=== PATIENT | female | born 1950 | race Caucasian/White ===

== ENCOUNTER 2016-10-19 13:52 | Inpatient (IN) | payer OTHER ==
[~2016-10-19] VITALS: Ht 170.2 cm; Wt 136.7 kg
[~2016-10-19 13:52] MED LIST: BAYER ASPIRIN C81 MG PO; CLARITIN10 MG PO; COZAAR100 MG PO; Carafate1 GM/10 ML PO; DIFLUCAN150 MG PO; EC NAPROSYN500 MG PO; ESTRADIOL0.05 MG/24 TD; FEXOFENADINE180 MG PO; FLONASE0.05 MG/AC NS; FLUTICASON0.05 MG/AC NS; HUMALOG MIX75/253 M1 SC; KEFLEX500 MG PO; LASIX40 MG PO; LIDEX 0.05% GEL60 GM PO; LORATADINE10 MG PO; LOSARTAN POTASS50 M1 PO; MEDROL DOSEPAK4 MG PO; MIRALAX POWDER17 G1 PO; NAPROXEN500 M1 PO; NEXIUM40 MG PO; NOVOLIN N100 U/ML SC; OYSTER SHELL CA1 TA4 PO; PROTONIX40 MG PO; VITAMIN D1000 IU PO; Zofran4 MG PO
[2016-10-19 14:14] VITALS: BP 126/60
[2016-10-19 15:13] LABS: BASO % 0.2 % (0.0-1.0); EOS # 0.3 10*3/uL (0.0-0.4); EOS % 3.5 % (1.0-4.0); HEMATOCRIT 44.2 % (37.0-47.0); HEMOGLOBIN 13.8 g/dl (12.0-16.0); LYMPH # 1.8 10*3/uL (1.3-4.4); LYMPH % 19.9 % (27.0-41.0); MEAN CELL VOLUME 91.5 fl (81.0-99.0); MEAN CORPUSCULAR HGB 28.6 pg (27.0-31.0); MEAN CORPUSCULAR HGB CONC 31.2 g/dl (33.0-37.0); MEAN PLATELET VOLUME 9.9 fl (9.6-12.3); MONO # 0.5 10*3/uL (0.1-1.0); MONO % 5.3 % (3.0-9.0); NEUT # 6.5 10*3/uL (2.3-7.9); NEUT % 70.8 % (47.0-73.0); PLATELET COUNT AUTOMATED 250 10*3/uL (130-400); RED BLOOD COUNT 4.83 10*6/uL (4.10-5.10); RED CELL DISTRI WIDTH 14.9 % (0-14.5); WHITE BLOOD COUNT 9.2 10*3/uL (4.8-10.8)
[2016-10-19 15:30] LABS: ALBUMIN 3.2 gm/dl (3.1-4.5); ALKALINE PHOSPHATASE 59 U/L (45-117); BILIRUBIN, TOTAL 0.3 mg/dl (0.2-1.0); BUN 14 mg/dl (7-24); CARBON DIOXIDE 30 mmol/L (21-32); CHLORIDE 105 mmol/L (98-107); EST GLOM FILT AFRICAN AMERICAN > 60 ml/min; GLUCOSE 59 mg/dL (65-99); POTASSIUM 3.3 mmol/L (3.5-5.1); SGOT/AST 24 IU/L (3-35); SGPT/ALT 21 U/L (12-78); SODIUM 143 mmol/L (136-145); TOTAL PROTEIN 7.3 gm/dL (6.4-8.2)
[2016-10-19 17:15] VITALS: BP 134/80
[2016-10-19 18:30] VITALS: BP 142/60
[2016-10-19] MEDS ORDERED: ZOCOR20 MG PO (18:37)
[2016-10-19 20:00] VITALS: BP 149/65
[2016-10-20] VITALS: BP 126/47
[2016-10-20 06:37] LABS: BASO % 0.5 % (0.0-1.0); EOS # 0.3 10*3/uL (0.0-0.4); EOS % 5.1 % (1.0-4.0); HEMATOCRIT 38.2 % (37.0-47.0); LYMPH # 2.3 10*3/uL (1.3-4.4); MEAN CELL VOLUME 92.7 fl (81.0-99.0); MEAN CORPUSCULAR HGB 29.1 pg (27.0-31.0); MEAN CORPUSCULAR HGB CONC 31.4 g/dl (33.0-37.0); MEAN PLATELET VOLUME 9.7 fl (9.6-12.3); MONO # 0.5 10*3/uL (0.1-1.0); MONO % 7.6 % (3.0-9.0); NEUT # 3.1 10*3/uL (2.3-7.9); NEUT % 49.5 % (47.0-73.0); PLATELET COUNT AUTOMATED 224 10*3/uL (130-400); RED BLOOD COUNT 4.12 10*6/uL (4.10-5.10); RED CELL DISTRI WIDTH 15.2 % (0-14.5); WHITE BLOOD COUNT 6.3 10*3/uL (4.8-10.8)
[2016-10-20 07:12] LABS: HEMOGLOBIN A1c 7.9 % (4.8-5.6)
[2016-10-20 07:14] LABS: CHLORIDE 105 mmol/L (98-107); POTASSIUM 4.1 mmol/L (3.5-5.1); SODIUM 145 mmol/L (136-145)
[2016-10-20 07:33] LABS: BUN 12 mg/dl (7-24); CARBON DIOXIDE 30 mmol/L (21-32); EST GLOM FILT AFRICAN AMERICAN > 60 ml/min; FREE T4 0.87 ng/dl (0.76-1.46); GLUCOSE 193 mg/dL (65-99); MAGNESIUM 2.4 mg/dL (1.5-2.1); PHOSPHOROUS 4.2 mg/dL (2.5-4.9)
[2016-10-20 08:00] VITALS: BP 155/76
[2016-10-20 12:00] VITALS: BP 168/72
== END 2016-10-20 14:39 | disposition home or self-care (01) | DRG 638 ==
LOC: ED 13:52 → EDHOLD 15:48 → 5E 15:48
PROVIDERS: Registered Nurse; Student in an Organized Health Care Education/Training Program
DX: E11.649 Type 2 diabetes mellitus with hypoglycemia without coma (principal); E44.1 Mild protein-calorie malnutrition; K27.9 Peptic ulcer, site unspecified, unspecified as acute or chronic, without hemorrhage or perforation; Z68.42 Body mass index [BMI] 45.0-49.9, adult; R55 Syncope and collapse; E87.6 Hypokalemia; K21.9 Gastro-esophageal reflux disease without esophagitis; E78.5 Hyperlipidemia, unspecified; I10 Essential (primary) hypertension; I25.10 Atherosclerotic heart disease of native coronary artery without angina pectoris; Z79.4 Long term (current) use of insulin; Z95.1 Presence of aortocoronary bypass graft; Z90.710 Acquired absence of both cervix and uterus; Z98.49 Cataract extraction status, unspecified eye; Z87.891 Personal history of nicotine dependence; Z88.1 Allergy status to other antibiotic agents; Z88.0 Allergy status to penicillin; Z82.49 Family history of ischemic heart disease and other diseases of the circulatory system; Z79.82 Long term (current) use of aspirin; Z79.899 Other long term (current) drug therapy

== ENCOUNTER 2016-10-31 13:46 | Inpatient (IN) | payer OTHER ==
[~2016-10-31] VITALS: Ht 170.1 cm; Wt 138.8 kg
[2016-10-31 13:46] VITALS: BP 147/58
[~2016-10-31 13:46] MED LIST changes: +ZOCOR20 MG PO
[2016-10-31] MEDS ORDERED: IRON325 M2 PO (14:14)
[2016-10-31] MEDS ORDERED: PLAVIX75 M1 PO (14:15)
[2016-10-31] MEDS ORDERED: OYSTER SHELL C1 EAC3 PO (14:15)
[2016-10-31] MEDS ORDERED: PROTONIX TR40 M1 PO (14:15)
[2016-10-31] MEDS ORDERED: LASIX40 MG PO (14:16)
[2016-10-31] MEDS ORDERED: HUMALOG 751 UNIT/0.0 SC (14:16)
[2016-10-31] MEDS ORDERED: CARVEDILOL25 MG PO (14:16)
[2016-10-31] MEDS ORDERED: COZAAR100 MG PO (14:17)
[2016-10-31] MEDS ORDERED: SIMVASTATIN20 MG PO (14:17)
[2016-10-31 14:47] LABS: BILIRUBIN NEGATIVE (NEGATIVE); BLOOD 1+ (NEGATIVE); CLARITY SL CLOUDY (CLEAR); COLOR YELLOW (YELLOW); GLUCOSE NEGATIVE (NEGATIVE); KETONE NEGATIVE (NEGATIVE); LEUKO ESTERASE NEGATIVE (NEGATIVE); NITRITE POSITIVE (NEGATIVE); PROTEIN NEGATIVE (NEGATIVE); UROBILINOGEN 0.2 E.U./dl (0.2-1.0)
[2016-10-31 14:51] LABS: BASO % 0.2 % (0.0-1.0); EOS # 0.3 10*3/uL (0.0-0.4); EOS % 2.9 % (1.0-4.0); HEMATOCRIT 43.1 % (37.0-47.0); HEMOGLOBIN 13.5 g/dl (12.0-16.0); LYMPH # 1.7 10*3/uL (1.3-4.4); LYMPH % 19.6 % (27.0-41.0); MEAN CELL VOLUME 92.1 fl (81.0-99.0); MEAN CORPUSCULAR HGB 28.8 pg (27.0-31.0); MEAN CORPUSCULAR HGB CONC 31.3 g/dl (33.0-37.0); MEAN PLATELET VOLUME 9.9 fl (9.6-12.3); MONO # 0.5 10*3/uL (0.1-1.0); MONO % 5.3 % (3.0-9.0); NEUT # 6.3 10*3/uL (2.3-7.9); NEUT % 71.8 % (47.0-73.0); PLATELET COUNT AUTOMATED 237 10*3/uL (130-400); RED BLOOD COUNT 4.68 10*6/uL (4.10-5.10); RED CELL DISTRI WIDTH 15.2 % (0-14.5); WHITE BLOOD COUNT 8.7 10*3/uL (4.8-10.8)
[2016-10-31 14:56] LABS: BACTERIA 2+
[2016-10-31 15:09] LABS: ALBUMIN 3.2 gm/dl (3.1-4.5); ALKALINE PHOSPHATASE 57 U/L (45-117); BILIRUBIN, TOTAL 0.4 mg/dl (0.2-1.0); BUN 9 mg/dl (7-24); CARBON DIOXIDE 29 mmol/L (21-32); CHLORIDE 104 mmol/L (98-107); EST GLOM FILT AFRICAN AMERICAN > 60 ml/min; GLUCOSE 164 mg/dL (65-99); POTASSIUM 3.8 mmol/L (3.5-5.1); SGOT/AST 19 IU/L (3-35); SGPT/ALT 20 U/L (12-78); SODIUM 145 mmol/L (136-145)
[2016-10-31 15:31] LABS: TROPONIN I < 0.015 ng/ml (<0.045)
[2016-10-31 16:11] VITALS: BP 146/60
[2016-10-31 16:30] VITALS: BP 160/62
[2016-10-31 16:42] VITALS: BP 160/66
[2016-10-31 20:00] VITALS: BP 110/71
[2016-11-01] VITALS: BP 124/48
[2016-11-01 06:31] LABS: BASO % 0.3 % (0.0-1.0); EOS # 0.4 10*3/uL (0.0-0.4); EOS % 5.4 % (1.0-4.0); HEMATOCRIT 37.8 % (37.0-47.0); HEMOGLOBIN 11.5 g/dl (12.0-16.0); LYMPH # 2.2 10*3/uL (1.3-4.4); LYMPH % 34.8 % (27.0-41.0); MEAN CELL VOLUME 93.6 fl (81.0-99.0); MEAN CORPUSCULAR HGB 28.5 pg (27.0-31.0); MEAN CORPUSCULAR HGB CONC 30.4 g/dl (33.0-37.0); MEAN PLATELET VOLUME 10.2 fl (9.6-12.3); MONO # 0.6 10*3/uL (0.1-1.0); MONO % 8.6 % (3.0-9.0); NEUT # 3.3 10*3/uL (2.3-7.9); NEUT % 50.7 % (47.0-73.0); PLATELET COUNT AUTOMATED 210 10*3/uL (130-400); RED BLOOD COUNT 4.04 10*6/uL (4.10-5.10); RED CELL DISTRI WIDTH 15.3 % (0-14.5); WHITE BLOOD COUNT 6.4 10*3/uL (4.8-10.8)
[2016-11-01 06:50] LABS: POTASSIUM 4.2 mmol/L (3.5-5.1)
[2016-11-01 08:00] VITALS: BP 121/43
[2016-11-01 10:05] VITALS: BP 134/64
[2016-11-01 12:00] VITALS: BP 153/70
[2016-11-01 16:00] VITALS: BP 122/40
[2016-11-01 20:00] VITALS: BP 158/78
[2016-11-02] VITALS: BP 122/49
[2016-11-02 06:21] LABS: BASO % 0.4 % (0.0-1.0); EOS # 0.3 10*3/uL (0.0-0.4); HEMATOCRIT 37.7 % (37.0-47.0); HEMOGLOBIN 11.9 g/dl (12.0-16.0); LYMPH # 1.8 10*3/uL (1.3-4.4); LYMPH % 31.5 % (27.0-41.0); MEAN CELL VOLUME 92.9 fl (81.0-99.0); MEAN CORPUSCULAR HGB 29.3 pg (27.0-31.0); MEAN CORPUSCULAR HGB CONC 31.6 g/dl (33.0-37.0); MEAN PLATELET VOLUME 10.1 fl (9.6-12.3); MONO # 0.4 10*3/uL (0.1-1.0); MONO % 7.7 % (3.0-9.0); NEUT # 3.1 10*3/uL (2.3-7.9); NEUT % 55.2 % (47.0-73.0); PLATELET COUNT AUTOMATED 202 10*3/uL (130-400); RED BLOOD COUNT 4.06 10*6/uL (4.10-5.10); RED CELL DISTRI WIDTH 14.9 % (0-14.5); WHITE BLOOD COUNT 5.6 10*3/uL (4.8-10.8)
[2016-11-02 06:55] LABS: BUN 15 mg/dl (7-24); CARBON DIOXIDE 30 mmol/L (21-32); CHLORIDE 103 mmol/L (98-107); EST GLOM FILT AFRICAN AMERICAN > 60 ml/min; GLUCOSE 294 mg/dL (65-99); POTASSIUM 3.9 mmol/L (3.5-5.1); SODIUM 143 mmol/L (136-145)
[2016-11-02 08:00] VITALS: BP 125/60
== END 2016-11-02 14:18 | disposition home or self-care (01) | DRG 312 ==
LOC: ED 13:46 → 4E 16:07 → EDHOLD 16:07 → 4E 16:12
PROVIDERS: Emergency Medicine; Family Medicine; Internal Medicine
DX: R55 Syncope and collapse (principal); I11.0 Hypertensive heart disease with heart failure; I50.42 Chronic combined systolic (congestive) and diastolic (congestive) heart failure; I25.810 Atherosclerosis of coronary artery bypass graft(s) without angina pectoris; Z95.1 Presence of aortocoronary bypass graft; K21.9 Gastro-esophageal reflux disease without esophagitis; E78.5 Hyperlipidemia, unspecified; I25.5 Ischemic cardiomyopathy; Z79.4 Long term (current) use of insulin; Z88.0 Allergy status to penicillin; Z88.1 Allergy status to other antibiotic agents; Z98.49 Cataract extraction status, unspecified eye; Z90.710 Acquired absence of both cervix and uterus; Z87.891 Personal history of nicotine dependence; Z82.5 Family history of asthma and other chronic lower respiratory diseases; Z82.49 Family history of ischemic heart disease and other diseases of the circulatory system; Z79.899 Other long term (current) drug therapy

== ENCOUNTER → 2016-12-31 | Outpatient (CLI) | payer OTHER ==
[~2016-12-31] MED LIST changes: +CARVEDILOL25 MG PO; +HUMALOG 751 UNIT/0.0 SC; +IRON325 M2 PO; +OYSTER SHELL C1 EAC3 PO; +PLAVIX75 M1 PO; +PROTONIX TR40 M1 PO; +SIMVASTATIN20 MG PO
== END | disposition home or self-care (01) ==
LOC: LAB 14:57 → US 15:00
DX: N18.3 Chronic kidney disease, stage 3 (moderate) (principal)

== ENCOUNTER → 2017-05-17 | Outpatient (CLI) | payer OTHER ==
[2017-05-17 12:20] LABS: CREATININE 1.18 mg/dL (0.55-1.02); POTASSIUM 3.9 mmol/L (3.5-5.1)
== END ==
LOC: LAB 11:26
PROVIDERS: Internal Medicine
DX: E87.0 Hyperosmolality and hypernatremia (principal)

== ENCOUNTER → 2017-09-09 | Outpatient (CLI) | payer OTHER | END | disposition home or self-care (01) | LOC: LAB 09:08 | DX: E11.9 Type 2 diabetes mellitus without complications (principal) ==

== ENCOUNTER → 2017-12-21 | Outpatient (CLI) | payer OTHER | END | disposition home or self-care (01) | LOC: CARD 09:27 | DX: R60.0 Localized edema (principal) ==

== ENCOUNTER → 2018-02-09 | Outpatient (CLI) | payer OTHER | END | disposition home or self-care (01) | LOC: MAMMO 08:37 | DX: Z12.31 Encounter for screening mammogram for malignant neoplasm of breast (principal) ==

== ENCOUNTER → 2018-05-18 | Outpatient (CLI) | payer OTHER ==
[~2018-05-18] MED LIST changes: +AMLODIPINE BESYL5 MG PO; +ASPIR LOW81 MG PO; +CIPRO500 MG PO; +DIOVAN40 MG PO; +FEOSOL325 MG PO; +HYDROCHLOROTHIA25 M1 PO; +LEVOTHYROXINE75 MCG PO; +MAGNESIUM OXID400 MG PO; +Magnesium Oxid400 MG PO; +TIMOLOL MALEATE5 M1 OPH; +TRAMADOL HCL50 MG PO
== END | disposition home or self-care (01) ==
LOC: RAD 13:35
DX: M25.552 Pain in left hip (principal); M53.3 Sacrococcygeal disorders, not elsewhere classified; M54.5 Low back pain

== ENCOUNTER 2018-05-29 04:55 | Inpatient (IN) | payer OTHER ==
[2018-05-29] VITALS (7 sets, daily range): BP systolic 139–187; BP diastolic 58–89
[~2018-05-29] VITALS: Ht 170.2 cm; Wt 123.5 kg
--- NOTE | ~2018-05-29 | EKG ---
[place], [place] ELECTROCARDIOGRAM REPORT NAME: CROW VICENTE UNIT #: [id number] ROOM: [facility] DOCTOR: SILVIA DRAFT REPORT BIRTHDATE: [birth year] [facility] Test Date: 2018-05-29 Test Time: 05:29:58 Pat Name: CROW VICENTE Department: Room: [facility] Gender: F Exercise Physiologist Certified: : 1950 Requested By: CROW BLOUNT Order Number: [id number] Reading MD: Elizabet Dumas MD Measurements Intervals [place] Rate: 112 P: 69 [place]: 166 QRS: 44 QRSD: 108 T: QT: 357 QTc: 488 Interpretive Statements Sinus tachycardia Nonspecific repol abnormality, diffuse leads Borderline prolonged QT interval No previous ECG available for comparison Electronically Signed On 05-29-2018 12:45:52 PST by Elizabet Dumas MD CM:EKGRPT:ELECTROCARDIOGRAM REPORT [id number] CROW BARRIGA DRAFT REPORT CROW BLOUNT DO
[~2018-05-29 04:55] MED LIST changes: -AMLODIPINE BESYL5 MG PO; -ASPIR LOW81 MG PO; -CIPRO500 MG PO; -DIOVAN40 MG PO; -FEOSOL325 MG PO; -HYDROCHLOROTHIA25 M1 PO; -LEVOTHYROXINE75 MCG PO; -MAGNESIUM OXID400 MG PO; -Magnesium Oxid400 MG PO; -TIMOLOL MALEATE5 M1 OPH; -TRAMADOL HCL50 MG PO
[2018-05-29] MEDS ORDERED: DIOVAN40 MG PO (05:00)
[2018-05-29 05:59] LABS: CREATININE 1.33 mg/dL (0.55-1.02); POTASSIUM 4.2 mmol/L (3.5-5.1); TOTAL PROTEIN 7.9 gm/dL (6.4-8.2)
[2018-05-29 06:00] LABS: TROPONIN I 0.015 ng/ml (<0.045)
[2018-05-29 06:07] LABS: BILIRUBIN NEGATIVE (NEGATIVE); BLOOD 2+ (NEGATIVE); CLARITY CLOUDY (CLEAR); COLOR YELLOW (YELLOW); GLUCOSE 2+ (NEGATIVE); KETONE 3+ (NEGATIVE); LEUKO ESTERASE NEGATIVE (NEGATIVE); NITRITE POSITIVE (NEGATIVE); PH 5.5 (5.0-9.0); SPECIFIC GRAVITY 1.015 (1.005-1.030); UROBILINOGEN 0.2 E.U./dl (0.2-1.0)
[2018-05-29 06:32] LABS: BACTERIA 2+; EPITHELIAL CELLS 15-20; YEAST 4+
[2018-05-29 07:33] LABS: BASO % 0.2 % (0.0-1.0); HEMATOCRIT 45.6 % (37.0-47.0); HEMOGLOBIN 14.5 g/dl (12.0-16.0); LYMPH # 1.2 10*3/uL (1.3-4.4); LYMPH % 9.9 % (27.0-41.0); MEAN CELL VOLUME 93.6 fl (81.0-99.0); MEAN CORPUSCULAR HGB 29.8 pg (27.0-31.0); MEAN CORPUSCULAR HGB CONC 31.8 g/dl (33.0-37.0); MEAN PLATELET VOLUME 11.2 fl (9.6-12.3); MONO # 0.2 10*3/uL (0.1-1.0); MONO % 1.8 % (3.0-9.0); NEUT # 10.6 10*3/uL (2.3-7.9); NEUT % 87.8 % (47.0-73.0); PLATELET COUNT AUTOMATED 289 10*3/uL (130-400); RED BLOOD COUNT 4.87 10*6/uL (4.10-5.10); RED CELL DISTRI WIDTH 13.1 % (0-14.5); WHITE BLOOD COUNT 12.1 10*3/uL (4.8-10.8)
[2018-05-29] MEDS ORDERED: TIMOLOL MALEATE5 M1 OPH (08:47)
[2018-05-29] MEDS ORDERED: TRAMADOL HCL50 MG PO (08:49)
[2018-05-29] MEDS ORDERED: ASPIR LOW81 MG PO (08:58)
[2018-05-29] MEDS ORDERED: LEVOTHYROXINE75 MCG PO (08:58)
[2018-05-29] MEDS ORDERED: HYDROCHLOROTHIA25 M1 PO (08:59)
[2018-05-29] MEDS ORDERED: AMLODIPINE BESYL5 MG PO (09:00)
[2018-05-29 09:27] LABS: CREATININE 1.47 mg/dL (0.55-1.02)
[2018-05-29 12:55] LABS: CREATININE 1.4 mg/dL (0.55-1.02); POTASSIUM 3.9 mmol/L (3.5-5.1)
[2018-05-29 14:59] LABS: URINE CREATININE RANDOM 46.3 mg/dL
[2018-05-29 17:02] LABS: CREATININE 1.2 mg/dL (0.55-1.02); POTASSIUM 3.9 mmol/L (3.5-5.1)
[2018-05-29 20:04] LABS: CREATININE 1.21 mg/dL (0.55-1.02)
[2018-05-29 20:07] LABS: POTASSIUM 3.4 mmol/L (3.5-5.1)
[2018-05-30] VITALS: BP 186/88
[2018-05-30 00:43] LABS: BUN 16 mg/dl (7-24); CHLORIDE 104 mmol/L (98-107); CREATININE 0.98 mg/dL (0.55-1.02); POTASSIUM 3.6 mmol/L (3.5-5.1); SODIUM 142 mmol/L (136-145)
[2018-05-30 04:00] VITALS: BP 176/65
[2018-05-30 05:35] LABS: ALBUMIN 2.7 gm/dl (3.1-4.5); ALKALINE PHOSPHATASE 56 U/L (45-117); BUN 13 mg/dl (7-24); CHLORIDE 106 mmol/L (98-107); CHOLESTEROL 141 mg/dL (<200); FREE T4 1.23 ng/dl (0.76-1.46); PHOSPHOROUS 1.4 mg/dL (2.5-4.9); POTASSIUM 3.4 mmol/L (3.5-5.1); SGOT/AST 19 IU/L (3-35); SGPT/ALT 18 U/L (12-78); SODIUM 141 mmol/L (136-145); TOTAL PROTEIN 6.8 gm/dL (6.4-8.2); TRIGLYCERIDES 129 mg/dl (<150); VLDL CHOLESTEROL 26 mg/dL (6-40)
[2018-05-30 05:39] LABS: HDL CHOLESTEROL 57 mg/dl (40-60); LDL CHOLESTEROL 58 mg/dL (9-159)
[2018-05-30 06:23] LABS: BASO % 0.1 % (0.0-1.0); HEMATOCRIT 40.9 % (37.0-47.0); HEMOGLOBIN 12.6 g/dl (12.0-16.0); LYMPH # 1.7 10*3/uL (1.3-4.4); LYMPH % 11.2 % (27.0-41.0); MEAN CELL VOLUME 95.8 fl (81.0-99.0); MEAN CORPUSCULAR HGB 29.5 pg (27.0-31.0); MEAN CORPUSCULAR HGB CONC 30.8 g/dl (33.0-37.0); MEAN PLATELET VOLUME 10.9 fl (9.6-12.3); MONO # 0.7 10*3/uL (0.1-1.0); MONO % 4.7 % (3.0-9.0); NEUT # 12.5 10*3/uL (2.3-7.9); NEUT % 83.5 % (47.0-73.0); PLATELET COUNT AUTOMATED 264 10*3/uL (130-400); RED BLOOD COUNT 4.27 10*6/uL (4.10-5.10); RED CELL DISTRI WIDTH 13.6 % (0-14.5)
[2018-05-30 07:01] LABS: ACT PARTIAL THROMBO TIME 20.9 SECONDS (20.8-31.5); INTERNATIONAL NORM RATIO 0.9 (2.0-3.5)
[2018-05-30 07:51] LABS: VITAMIN D, 25-HYDROXY 26.4 ng/mL (30-100)
[2018-05-30 08:00] VITALS: BP 170/72
[2018-05-30 12:00] VITALS: BP 157/73
[2018-05-30 12:40] LABS: BUN 11 mg/dl (7-24); CHLORIDE 106 mmol/L (98-107); CREATININE 0.86 mg/dL (0.55-1.02); PHOSPHOROUS 2.3 mg/dL (2.5-4.9); SODIUM 139 mmol/L (136-145)
[2018-05-30 12:46] LABS: POTASSIUM 4.4 mmol/L (3.5-5.1)
[2018-05-30 16:00] VITALS: BP 146/60
[2018-05-30 20:00] VITALS: BP 128/69
[2018-05-31] VITALS: BP 155/64
[2018-05-31 06:41] LABS: BASO % 0.2 % (0.0-1.0); EOS # 0.1 10*3/uL (0.0-0.4); EOS % 0.7 % (1.0-4.0); HEMATOCRIT 38.1 % (37.0-47.0); LYMPH # 2.4 10*3/uL (1.3-4.4); LYMPH % 24.4 % (27.0-41.0); MEAN CELL VOLUME 95.7 fl (81.0-99.0); MEAN CORPUSCULAR HGB 30.2 pg (27.0-31.0); MEAN CORPUSCULAR HGB CONC 31.5 g/dl (33.0-37.0); MEAN PLATELET VOLUME 10.5 fl (9.6-12.3); MONO # 0.6 10*3/uL (0.1-1.0); MONO % 5.8 % (3.0-9.0); NEUT # 6.7 10*3/uL (2.3-7.9); NEUT % 68.5 % (47.0-73.0); PLATELET COUNT AUTOMATED 259 10*3/uL (130-400); RED BLOOD COUNT 3.98 10*6/uL (4.10-5.10); RED CELL DISTRI WIDTH 13.7 % (0-14.5); WHITE BLOOD COUNT 9.7 10*3/uL (4.8-10.8)
[2018-05-31 06:43] LABS: BUN 10 mg/dl (7-24); CHLORIDE 103 mmol/L (98-107); CREATININE 0.99 mg/dL (0.55-1.02); PHOSPHOROUS 2.1 mg/dL (2.5-4.9); SODIUM 138 mmol/L (136-145)
[2018-05-31 12:00] VITALS: BP 108/84
[2018-05-31 16:00] VITALS: BP 144/60
[2018-05-31 20:00] VITALS: BP 134/61
[2018-06-01] VITALS: BP 138/63
[2018-06-01 06:39] LABS: BASO % 0.2 % (0.0-1.0); EOS # 0.2 10*3/uL (0.0-0.4); EOS % 2.5 % (1.0-4.0); HEMATOCRIT 36.6 % (37.0-47.0); LYMPH # 2.2 10*3/uL (1.3-4.4); LYMPH % 27.5 % (27.0-41.0); MEAN CELL VOLUME 93.1 fl (81.0-99.0); MEAN CORPUSCULAR HGB 30.5 pg (27.0-31.0); MEAN CORPUSCULAR HGB CONC 32.8 g/dl (33.0-37.0); MEAN PLATELET VOLUME 10.2 fl (9.6-12.3); MONO # 0.6 10*3/uL (0.1-1.0); MONO % 7.2 % (3.0-9.0); NEUT # 5.1 10*3/uL (2.3-7.9); NEUT % 62.4 % (47.0-73.0); PLATELET COUNT AUTOMATED 241 10*3/uL (130-400); RED BLOOD COUNT 3.93 10*6/uL (4.10-5.10); RED CELL DISTRI WIDTH 13.3 % (0-14.5); WHITE BLOOD COUNT 8.1 10*3/uL (4.8-10.8)
[2018-06-01 06:55] LABS: ALBUMIN 2.4 gm/dl (3.1-4.5); ALKALINE PHOSPHATASE 48 U/L (45-117); BUN 10 mg/dl (7-24); CHLORIDE 105 mmol/L (98-107); CREATININE 0.81 mg/dL (0.55-1.02); PHOSPHOROUS 2.8 mg/dL (2.5-4.9); SGOT/AST 19 IU/L (3-35); SGPT/ALT 19 U/L (12-78); SODIUM 138 mmol/L (136-145)
[2018-06-01 12:00] VITALS: BP 110/75
[2018-06-01 16:00] VITALS: BP 130/51
[2018-06-01] MEDS ORDERED: CIPRO500 MG PO (17:25)
== END 2018-06-01 18:43 | disposition home or self-care (01) | DRG 871 ==
LOC: ED 04:55 → ICCU 06:37 → EDHOLD 06:37 → 5E 06:37 → EDHOLD 07:19 → ICCU 07:35 → 5E 05-30 14:04
PROVIDERS: Emergency Medicine; Internal Medicine; Internal Medicine Nephrology; Student in an Organized Health Care Education/Training Program; ADMIT Internal Medicine
DX: A41.9 Sepsis, unspecified organism (principal); E13.10 Other specified diabetes mellitus with ketoacidosis without coma; N17.0 Acute kidney failure with tubular necrosis; E44.1 Mild protein-calorie malnutrition; N39.0 Urinary tract infection, site not specified; I50.42 Chronic combined systolic (congestive) and diastolic (congestive) heart failure; E87.3 Alkalosis; Z68.42 Body mass index [BMI] 45.0-49.9, adult; R65.20 Severe sepsis without septic shock; E78.5 Hyperlipidemia, unspecified; K21.9 Gastro-esophageal reflux disease without esophagitis; I11.0 Hypertensive heart disease with heart failure; K29.00 Acute gastritis without bleeding; I25.10 Atherosclerotic heart disease of native coronary artery without angina pectoris; E83.39 Other disorders of phosphorus metabolism; B96.1 Klebsiella pneumoniae [K. pneumoniae] as the cause of diseases classified elsewhere; Z79.4 Long term (current) use of insulin; Z87.11 Personal history of peptic ulcer disease; Z90.710 Acquired absence of both cervix and uterus; Z95.1 Presence of aortocoronary bypass graft; Z82.49 Family history of ischemic heart disease and other diseases of the circulatory system; Z83.6 Family history of other diseases of the respiratory system; Z88.0 Allergy status to penicillin; Z88.1 Allergy status to other antibiotic agents; Z79.82 Long term (current) use of aspirin; Z79.899 Other long term (current) drug therapy; Z98.41 Cataract extraction status, right eye; Z83.3 Family history of diabetes mellitus

== ENCOUNTER 2018-06-05 01:25 | Inpatient (IN) | payer OTHER ==
[~2018-06-05] VITALS: Ht 170.1 cm; Wt 127.1 kg
[2018-06-05] VITALS (51 sets, daily range): BP systolic 20–155; BP diastolic 0–60
--- NOTE | ~2018-06-05 | PR ---
[place], [place] PROGRESS NOTE [id number] UN[facility] #: [id number] ROOM: 404 DOCTOR: LAKIA HARLEY MD BIRTHDATE: [birth year] DOS: 06/11/2018 SUBJECTIVE: She feels well. She is sitting in a chair. She has had breakfast and no nausea, any abdominal pain. Has not had any chest pain or palpitations. When she had a run of monomorphic ventricular tachycardia, she did not have any symptoms. PHYSICAL EXAMINATION: GENERAL: This is a patient who is alert, oriented. She is very obese, comfortable, sitting in chair. She is not tachypneic. VITAL SIGNS: Pulse is 80 regular, blood pressure 119/53. NECK: Normal JVP. CARDIAC: Auscultation revealed no murmur or rub. She has 1 to 2+ edema in the feet. RESPIRATORY: Lungs are clear to auscultation. IMPRESSION: 1. This patient had a nonsustained monomorphic ventricular tachycardia couple of days ago and her potassium and magnesium levels were normal and she has not had any further episodes. Monitor continues to show normal sinus rhythm. 2. Acute renal failure has resolved and was due to volume depletion. 3. Hypovolemic shock, resolved with very aggressive IV hydration. 4. Diabetes mellitus. No new recommendations. LAKIA HARLEY MD CM:PNTRANS [id number] LAKIA HARLEY MD 06/11/18 2333 interface
--- NOTE | ~2018-06-05 | EKG ---
[place], [place] ELECTROCARDIOGRAM REPORT NAME: CROW VICENTE UNIT #: [id number] [facility]: [facility] DOCTOR: SILVIA DRAFT REPORT BIRTHDATE: [birth year] [facility] Test Date: 2018-06-05 Test Time: 01:49:05 Pat Name: CROW VICENTE Department: Room: [facility] Gender: F Stringer Machine Tender: Raghav Palmer : 1950 Requested By: JOHNNY DENIS Order Number: [id number] Reading MD: Lenard Padilla MD Measurements Intervals [place] Rate: 85 P: 36 WV: 144 QRS: 20 QRSD: 93 T: 30 QT: 492 QTc: 586 Interpretive Statements Sinus rhythm Borderline T abnormalities, anterior leads Prolonged QT interval Compared to ECG 05/29/2018 05:29:58 T-wave abnormality now present Sinus tachycardia no longer present Early repolarization no longer present Electronically Signed On 06-07-2018 14:07:04 PST by Lenard Padilla MD CM:EKGRPT:ELECTROCARDIOGRAM REPORT 0149 1407 JOHNNY BARRIGA DRAFT REPORT JOHNNY DENIS DO
--- NOTE | ~2018-06-05 | PR ---
[place], [place] PROGRESS NOTE NAME: CROW VICENTE UNIT #: [id number] ROOM: 404 DOCTOR: LAKIA HARLEY MD BIRTHDATE: [birth year] DOS: 06/09/2018 SUBJECTIVE: She feels well, sitting in a chair. She does not have any chest pain or breathing difficulty. Has not had any cough or fever. No palpitations. She has poor vision because of diabetic retinopathy. She had nonsustained V1-V2 monomorphic ventricular tachycardia. QT interval is normal. PHYSICAL EXAMINATION: GENERAL: The patient is very pleasant, alert. VITAL SIGNS: Pulse is regular. JVP is normal. Blood pressure 115/70. NECK: JVP normal. LUNGS: Clear to auscultation. EXTREMITIES: No edema in lower extremities. LABORATORY DATA: The patient's potassium and magnesium were fine. IMPRESSION: This patient with known coronary artery disease and had coronary artery bypass graft surgery about 2-3 years ago and had a nonsustained monomorphic ventricular tachycardia. She had normal LV systolic function with no obvious regional wall motion abnormality. I think this is probably a benign ventricular tachycardia; however, because of her background, it is probably prudent to perform a Lexiscan Cardiolite study on this patient. I discussed this with the resident. I thank you for this consult. LAKIA HARLEY MD CM:PNTRANS [id number] LAKIA HARLEY MD 06/16/18 0954 interface
--- NOTE | ~2018-06-05 | EKG ---
[place], [place] ELECTROCARDIOGRAM REPORT NAME: CROW VICENTE UNIT #: [id number] ROOM: [facility] DOCTOR: SILVIA DRAFT REPORT BIRTHDATE: [birth year] [facility] Test Date: 2018-06-05 Test Time: 10:06:01 Pat Name: CROW VICENTE Department: Room: [facility] Gender: F Crusher And Blender Operator: Erin Byrne : 1950 Requested By: JOHNNY DENIS Order Number: [id number] Reading MD: Lenard Padilla MD Measurements Intervals [place] Rate: 75 P: 48 NJ: 149 QRS: 26 QRSD: 109 T: QT: 386 QTc: 432 Interpretive Statements Sinus rhythm Ventricular premature complex Borderline low voltage, extremity leads Nonspecific T abnormalities, anterior leads Compared to ECG 05/29/2018 05:29:58 Ventricular premature complex(es) now present T-wave abnormality now present Sinus tachycardia no longer present Early repolarization no longer present Electronically Signed On 06-07-2018 14:08:01 PST by Lenard Padilla MD CM:EKGRPT:ELECTROCARDIOGRAM REPORT [id number] 1408 JOHNNY BARRIGA DRAFT REPORT JOHNNY DENIS DO
--- NOTE | ~2018-06-05 | PR ---
[place], [place] PROGRESS NOTE [id number] #: [id number] ROOM: 404 DOCTOR: ИВАН STEPHENS MD BIRTHDATE: [birth year] DOS: SUBJECTIVE: The patient has been admitted to the hospital with feeling of marked dizziness, falling down and sustaining some injury on her nose. She is today feeling very comfortably sitting in the chair, conscious, alert and oriented, not in any distress and she denies any headache, any chest pain, no difficulty breathing, no nausea, no vomiting. The patient had prolonged QT interval on her EKG, insulin-dependent diabetes mellitus, hypertension, hyperlipidemia, GERD syndrome, esophagitis, systolic and diastolic congestive heart failure, dyslipidemia, acute renal failure, hyperglycemia, protein-calorie malnutrition, autoimmune deficiency, obesity and leukocytosis. The patient is gradually improving. At admission, the patient has hypotension and now her blood pressure 107/50, pulse 74, respirations 18, temperature 97.5. Her comprehensive metabolic profile shows calcium 8.1, total protein 5.6, albumin 1.8, these are low. All other values are normal. CBC showed hypochromic anemia with hemoglobin 8.8, hematocrit 28.8, MCHC 30.6. Other values are normal. OBJECTIVE: CHEST: Clear. No creps or rhonchi. HEART: Regular, no murmur or thrill. ABDOMEN: Soft. EXTREMITIES: No edema of leg and she is progressively getting better. ИВАН STEPHENS MD CM:PNTRANS 1415 ИВАН STEPHENS MD 06/11/184 interface
--- NOTE | ~2018-06-05 | CON ---
[place], [place] REPORT OF CONSULTATION NAME: CROW VICENTE UNIT #: [id number] ROOM: [facility] DOCTOR: LAKIA HARLEY MD BIRTHDATE: [birth year] DOS: 06/06/2018 HISTORY OF PRESENT ILLNESS: This is a 68-year-old -[place] woman with extreme/morbid obesity, longstanding type 2 diabetes mellitus, who had a DKA, a week or so ago and was eventually discharged. She has coronary artery disease and 3-vessel CABG 2-3 years ago in [place]. She has hyperlipidemia, essential hypertension and has chronic kidney disease, GERD, also carries a diagnosis of systolic and diastolic heart failure, peptic ulcer disease, urinary tract infections. She has never had a stroke. She had tonsillectomy and adenoidectomy in the remote past and cataract extraction with lens implantation, hysterectomy. She had smoked in the remote past. She was admitted to the hospital because she had fallen and apparently did lose consciousness. It is not known how long she was out for. She lives alone. She apparently had been feeling weak and tired for about 3 days, just generalized malaise, but she did not have any localized pains, no chest pain or palpitations and had no headaches or any localizing neurological symptoms. The patient was found to be extremely hypotensive on admission and her blood sugar was around 500 and has remained high. She has been monitored in the intensive care unit and has received 6 liters of normal saline so far. She now is not short of breath. Her blood pressure remains low and autonomic dysfunction was considered as a possible reason for blood pressure creeping up. HOME MEDICATIONS: Included amlodipine 5, aspirin 81, carvedilol 25 mg daily, furosemide 40 mg daily, hydrochlorothiazide 25 mg daily, simvastatin 20 mg daily, timolol eye drops, tramadol, valsartan 40 daily, clopidogrel 75 mg daily, and ciprofloxacin 500 b.i.d. PHYSICAL EXAMINATION: GENERAL: This reveals a patient who is extremely obese. She is lying in bed. She is not tachypneic. She is not diaphoretic. Complexion looks fine. Thyromegaly is difficult to feel. There is no finger clubbing. VITAL SIGNS: Pulse is regular at 80 beats per minute. Systolic blood pressure about 90 mmHg. Central venous pressure was just checked through the double port and it needs a bit of a 3-6 cm of water. No bruit. HEART: There is no cardiomegaly, no murmurs. EXTREMITIES: She had 1-2+ edema in the pretibial areas. Pedal pulses were easily appreciated. RESPIRATORY: Breath sounds are fairly decent with very few adventitious sounds. LABORATORY DATA: ECG showed nothing acute. Chest x-ray was reviewed on the day of admission and also yesterday. It does not show any pulmonary congestion. Creatinine was 2.56, it is about 1.26 now. [place], [place] REPORT OF CONSULTATION NAME: CROW VICENTE UNIT #: [id number] ROOM: [facility] DOCTOR: CHERRI NICHOLS,LAKIA BIRTHDATE: [birth year] The patient has hypovolemic shock. I think this is most likely because she was on furosemide and hydrochlorothiazide, which was causing diureses on top of significant osmotic diuresis caused by severe hyperglycemia. RECOMMENDATIONS: Discontinue her diuretics altogether, which you have and continue with IV fluid because she still seems to be volume depleted and diabetes needs better control so osmotic diuresis can be averted. She had an echocardiogram yesterday, which showed an EF of 55% and diastolic dysfunction of impaired relaxation, but no valvular abnormalities. I discussed my impression and recommendations with the residents. I thank you for this consult. LAKIA HARLEY MD CM:CONSTR:REPORT OF CONSULTATION 1138 06/07/18 0718 interface
--- NOTE | ~2018-06-05 | EKG ---
[place], [place] ELECTROCARDIOGRAM REPORT NAME: CROW VICENTE UNIT #: [id number] ROOM: 404 DOCTOR: SILVIA DRAFT REPORT BIRTHDATE: [birth year] [facility] Test Date: 2018-06-08 Test Time: 16:51:39 Pat Name: CROW VICENTE Department: Room: 521 Gender: F Box Lining Machine Operator: : 1950 Requested By: SRAVANTHI AGEE Order Number: [id number] Reading MD: Billy Doan MD Measurements Intervals [place] Rate: 72 P: 66 [place]: 152 QRS: 53 QRSD: 101 T: 28 QT: 413 QTc: 453 Interpretive Statements Sinus rhythm Borderline T abnormalities, anterior leads Compared to ECG 06/05/2018 10:06:01 Ventricular premature complex(es) no longer present T-wave abnormality still present Electronically Signed On 06-20-2018 8:12:34 PST by Billy Doan MD CM:EKGRPT:ELECTROCARDIOGRAM REPORT 1651 0812 SRAVANTHI VEGA DRAFT REPORT SRAVANTHI AGEE
--- NOTE | ~2018-06-05 | PR ---
[place], [place] PROGRESS NOTE NAME: CROW VICENTE UNIT #: [id number] ROOM: 404 DOCTOR: LAKIA HARLEY MD BIRTHDATE: [birth year] DOS: 06/08/2018 SUBJECTIVE: The patient is sitting in the chair. She is comfortable. She is mildly short of breath, but does not have any chest pain or dizziness or palpitations. She ate reasonably well and did walk in the room. PHYSICAL EXAMINATION: GENERAL: The patient is very pleasant, alert, oriented. She is afebrile. VITAL SIGNS: Pulse is 72, blood pressure 141/57. NECK: JVP is normal. LUNGS: She has just a few adventitious sounds on the right side. Breath sounds are fairly decent. EXTREMITIES: Hardly any edema in the lower extremities. Acute renal failure, has completely resolved with a normal renal function. IMPRESSION: This patient had profound hypotension and tachycardia due to severe volume depletion resulting from loop diuretics, hydrochlorothiazide and osmotic diuresis because of severe hypoglycemia. She required enormous amount of IV fluids and now is euvolemic with good blood pressure and reasonable heart rate and normalized renal function. No new recommendations. LAKIA HARLEY MD CM:PNTRANS [id number] LAKIA HARLEY MD 06/09/18 0630 interface
[~2018-06-05 01:25] MED LIST changes: +AMLODIPINE BESYL5 MG PO; +ASPIR LOW81 MG PO; +CIPRO500 MG PO; +DIOVAN40 MG PO; +HYDROCHLOROTHIA25 M1 PO; +LEVOTHYROXINE75 MCG PO; +TIMOLOL MALEATE5 M1 OPH; +TRAMADOL HCL50 MG PO
[2018-06-05 01:47] LABS: BASO % 0.2 % (0.0-1.0); EOS # 0.1 10*3/uL (0.0-0.4); EOS % 0.4 % (1.0-4.0); HEMATOCRIT 38.5 % (37.0-47.0); HEMOGLOBIN 12.5 g/dl (12.0-16.0); LYMPH # 2.1 10*3/uL (1.3-4.4); LYMPH % 17.4 % (27.0-41.0); MEAN CELL VOLUME 94.6 fl (81.0-99.0); MEAN CORPUSCULAR HGB 30.7 pg (27.0-31.0); MEAN CORPUSCULAR HGB CONC 32.5 g/dl (33.0-37.0); MONO # 0.8 10*3/uL (0.1-1.0); MONO % 7.1 % (3.0-9.0); NEUT # 8.8 10*3/uL (2.3-7.9); NEUT % 74.6 % (47.0-73.0); PLATELET COUNT AUTOMATED 360 10*3/uL (130-400); RED BLOOD COUNT 4.07 10*6/uL (4.10-5.10); RED CELL DISTRI WIDTH 13.6 % (0-14.5); WHITE BLOOD COUNT 11.8 10*3/uL (4.8-10.8)
[2018-06-05 01:57] LABS: ACT PARTIAL THROMBO TIME 23.8 SECONDS (20.8-31.5); INTERNATIONAL NORM RATIO 0.9 (2.0-3.5)
[2018-06-05 02:04] LABS: ALBUMIN 2.7 gm/dl (3.1-4.5); ALKALINE PHOSPHATASE 59 U/L (45-117); BUN 16 mg/dl (7-24); CHLORIDE 94 mmol/L (98-107); CREATININE 2.56 mg/dL (0.55-1.02); POTASSIUM 3.7 mmol/L (3.5-5.1); SGOT/AST 24 IU/L (3-35); SGPT/ALT 23 U/L (12-78); SODIUM 137 mmol/L (136-145); TOTAL PROTEIN 7.2 gm/dL (6.4-8.2)
[2018-06-05 02:08] LABS: TROPONIN I < 0.015 ng/ml (<0.045)
[2018-06-05 02:43] LABS: BILIRUBIN NEGATIVE (NEGATIVE); BLOOD NEGATIVE (NEGATIVE); CLARITY SL CLOUDY (CLEAR); COLOR YELLOW (YELLOW); GLUCOSE NEGATIVE (NEGATIVE); KETONE TRACE (NEGATIVE); LEUKO ESTERASE TRACE (NEGATIVE); NITRITE NEGATIVE (NEGATIVE); UROBILINOGEN 0.2 E.U./dl (0.2-1.0)
--- NOTE | 2018-06-05 02:45 | NUR ---
Time: 244 A 68 year old FEMALE admitted to 4E under services of DR. TALISHA NICHOLS,SANJANA. Pt. arrived via stretcher from ER. Chief complaint: ARF, AMBULATORY DYSFUNCTION, PROLONGED QT INTERVAL. ARTHUR DUDLEY
[2018-06-05 02:50] LABS: EPITHELIAL CELLS 45-50; YEAST 2+
--- NOTE | 2018-06-05 03:30 | NUR ---
NOTIFIED DR WOODALL OF PT ADMISSION. NEW ORDERS RECEIVED. WILL VISIT PT IN AM.
[2018-06-05 05:09] LABS: ALBUMIN 2.6 gm/dl (3.1-4.5); CREATININE 2.44 mg/dL (0.55-1.02); POTASSIUM 3.7 mmol/L (3.5-5.1); TOTAL PROTEIN 6.5 gm/dL (6.4-8.2)
--- NOTE | 2018-06-05 06:15 | NUR ---
NOTIFIED DR ULLOA OF CONSULT. ORDERS RECEIVED. URINE LYTES, URINE CREATININE AND RENAL US.
--- NOTE | 2018-06-05 08:12 | NUR ---
PATIENT AWAKE IN BED, ATE 100% OF BREAKFAST. VOICES NO COMPLAINTS AT THIS TIME. CALL LIGHT WITHIN REACH. WILL CONTINUE TO MONITOR.
--- NOTE | 2018-06-05 08:19 | NUR ---
PATIENT TAKEN DOWN FOR RENAL ULTRASOUND AT THIS TIME.
--- NOTE | 2018-06-05 09:00 | NUR ---
Heading Saw Operator in to talk to patient. Patient states lives at home alone with her sister checking in on her. There are 18 steps in the home. Physician: Dr. Billy Doan [facility]acy: [facility] Home health services: none Patient's level of ADLs: MINIMAL ASSIST Patient has working utilities: yes DME: cane prn Follow-up physician's appointment after d/c: she prefers to make her own follow up appt after discharge Does patient want to access PORTAL?: no Discharge plan discussed with patient. She lives at home alone with her sister checking in on her. She is minimal assistance in her ADLs and occasionally uses a cane. Discussed home health care services and short term SNF and she would like to see how she does with PT before deciding. Discharge plan undecided at this time. ORALIA ROYAL
--- NOTE | 2018-06-05 09:30 | NUR ---
UNABLE TO OBTAIN A MANUAL BLOOD PRESSURE. DROPPLER USED TO OBTAIN MANUAL PRESSURE. 40/NOTHING. SECOND NURSE RECHECKED. BOLUS OF NORMAL SALINE STARTED. PATIENT C/O FEELING LIGHTHEADED. DR. AGEE NOTIFIED AND ORDERED TO TRANSFER TO THE UNIT. BEDSIDE REPORT GIVEN TO IGNACIO MCNULTY. DEFECT REPAIRER GLASSWARE NOTIFIED OF TRANSFER.
--- NOTE | 2018-06-05 10:11 | NUR ---
NURSE CALLED TO 404 TO ASSIST ANOTHER ICU & TELEMTRY NURSE WITH PATIENT WHO WAS HYPOTENSIVE BUT WARM & DRY WITH COMPLAINTS OF DIZZINESS, HOB AT 25degree. ATTEMPTED TO USE DOPPLER BUT WAS UNABLE TO GET A PRESSURE - DOCTORS WERE CALLED PATIENT WAS PLACED IN [place] & MOVED TO ICU. PLACED ON NC2L FOR O2 SAT OF 88% OBN ROOM AIR. IV started left forearm with #22 protective cath after 1 attempts. Site prepped with Chloroprep. Sterile dressing applied. Patient tolerated procedure well. IV infusing at 999 cc/hr. THIS NURSE DISCUSSED WITH THE PATIENT CODE STATUS AND SHE IS ADAMANT THAT NO INTUBATIONS, NO CPR, NO DEFIB - AGREED WITH MEDS & O2 VIA NASAL CANNULA. RESIDENT MADE AWARE WHO IS AT BEDSIDE. BLOOD PRESSURE IS NOW UP TO SYSTOLIC OF LOW 100';S WITH MAP 64. DR SEGOVIA NOW AT BEDSIDE. ORDERS REVIEWED WITH HIM ZULEIMA MENDIETA
[2018-06-05 10:34] LABS: ALBUMIN 2.1 gm/dl (3.1-4.5); CREATININE 2.47 mg/dL (0.55-1.02); POTASSIUM 3.6 mmol/L (3.5-5.1); TOTAL PROTEIN 5.3 gm/dL (6.4-8.2)
[2018-06-05 10:41] LABS: BASO % 0.1 % (0.0-1.0); EOS # 0.1 10*3/uL (0.0-0.4); EOS % 1.5 % (1.0-4.0); LYMPH % 23.7 % (27.0-41.0); MEAN CELL VOLUME 95.2 fl (81.0-99.0); MEAN CORPUSCULAR HGB 29.6 pg (27.0-31.0); MEAN CORPUSCULAR HGB CONC 31.1 g/dl (33.0-37.0); MEAN PLATELET VOLUME 10.1 fl (9.6-12.3); MONO # 0.8 10*3/uL (0.1-1.0); MONO % 9.7 % (3.0-9.0); NEUT # 5.5 10*3/uL (2.3-7.9); NEUT % 64.8 % (47.0-73.0); PLATELET COUNT AUTOMATED 279 10*3/uL (130-400); RED BLOOD COUNT 3.34 10*6/uL (4.10-5.10); WHITE BLOOD COUNT 8.5 10*3/uL (4.8-10.8)
[2018-06-05 10:43] LABS: HEMOGLOBIN 9.9 g/dl (12.0-16.0)
[2018-06-05 10:44] LABS: HEMATOCRIT 31.8 % (37.0-47.0)
--- NOTE | 2018-06-05 10:54 | NUR ---
IVF BOLUS COMPLETED ABOUT 1020. BLOOD PRESSURE DROPPED AFTER BOLUS BUT PATIENT IS CURRENTLY ASYMPTOMATIC WITH HOB @ 20 DEGREES
--- NOTE | 2018-06-05 11:16 | NUR ---
DR AGEE CALLED ABOUT BLOOD PRESSURE SLOWLY DROPPING. HE IS TO ORDER ANOTHER LITER OF IVF FOR BOLUS. PATIENT CURRENTLY GETTINGA CHEST XRAY AND IS CURRENTLY DENYING SYMPTOMS
--- NOTE | 2018-06-05 11:54 | NUR ---
ECHO IN PROGESS & IVF BOLUS HALF WAY DONE. DR SEGOVIA & DR AGEE CAME TO CHECK ON CONDITION & THEY WANT CALLED WITH BP AFTER BOLUS COMPLETED
--- NOTE | 2018-06-05 15:36 | NUR ---
PHYSICAL THERAPY PAtient with medical compications this date. Not appropriate for PT. Will check status at a later date. Thank you for this referral. Edna Gómez,PT
--- NOTE | 2018-06-05 15:53 | NUR ---
Patient has medical complications and is not appropriate for Occupational Therapy evaluation this date. OTR will recheck at a later date. Ju Gutierrez OTr/L
[2018-06-05 16:01] LABS: BASO % 0.2 % (0.0-1.0); EOS # 0.2 10*3/uL (0.0-0.4); EOS % 2.4 % (1.0-4.0); HEMATOCRIT 31.8 % (37.0-47.0); HEMOGLOBIN 10.4 g/dl (12.0-16.0); LYMPH # 2.1 10*3/uL (1.3-4.4); LYMPH % 23.4 % (27.0-41.0); MEAN CELL VOLUME 93.8 fl (81.0-99.0); MEAN CORPUSCULAR HGB 30.7 pg (27.0-31.0); MEAN CORPUSCULAR HGB CONC 32.7 g/dl (33.0-37.0); MEAN PLATELET VOLUME 10.1 fl (9.6-12.3); MONO # 0.8 10*3/uL (0.1-1.0); MONO % 9.4 % (3.0-9.0); NEUT # 5.7 10*3/uL (2.3-7.9); NEUT % 64.4 % (47.0-73.0); PLATELET COUNT AUTOMATED 285 10*3/uL (130-400); RED BLOOD COUNT 3.39 10*6/uL (4.10-5.10); WHITE BLOOD COUNT 8.9 10*3/uL (4.8-10.8)
--- NOTE | 2018-06-05 16:03 | NUR ---
Nursing screen and Occupational Therapy referral received. Thank you. Ju Gutierrez OTR/L
--- NOTE | 2018-06-05 16:51 | NUR ---
RESTING WITH EYES CLOSED - WARM & DRY TO TOUCH
--- NOTE | 2018-06-05 17:51 | NUR ---
IVF INCREASED PER DR PIERRE
--- NOTE | 2018-06-05 18:18 | NUR ---
DR PIERRE CALLED DR WOODALL ABOUT BLOOD PRESSURE
--- NOTE | 2018-06-05 18:55 | NUR ---
BLOOD PRESSURE DROPPED AND PATIENT IS MORE DROWSY THAN EARLIER. BLADDER SCANNED FOR 556cc. DR PIERRE HERE AND REQUESTED TERRY PLACED. #18 TERRY PLACED WITHOUT DIFFICULTY FOR CLOUDY URINE OF 600cc. DR PIERRE & DR LANGLEY PREPARED TO PLACE IJ-MLC. PT IN AGREEMENT AND ALSO IN AGREEMENT FOR ARTLINE REQUESTED BY DR WOODALL. IVF BOLUS STARTED VIA LEFT WRIST IV SITE. STAT LABS DRAWN
[2018-06-05 19:21] LABS: CREATININE 2.04 mg/dL (0.55-1.02); PHOSPHOROUS 4.3 mg/dL (2.5-4.9); POTASSIUM 3.3 mmol/L (3.5-5.1); TOTAL PROTEIN 5.2 gm/dL (6.4-8.2)
--- NOTE | 2018-06-05 19:25 | NUR ---
Shift chart check completed.24 HR chart check completed.
--- NOTE | 2018-06-05 19:37 | NUR ---
DR PIERRE CALLED DR HARLEY ABOUT CONSULT. DR PIERRE PLACED ALL ORDERS. RIJ-MLC INSERTED BY DR LANGLEY & DR PIERRE
--- NOTE | 2018-06-05 20:38 | NUR ---
DR PIERRE AND DR LANGLEY PLACED RIJ MLC. DR WATERS PLACED RT RADIAL ARTERIAL LINE. NEOSYNEPHRINE WAS STARTED AT 100MCG/MIN FOR NIBP IN 70'S. AFTER ARTERIAL LINE PLACED HER BP 140'S, THEREFORE MARCIA SYNEPHRINE TITRATED BY 50% TO 50MCG/MIN. PORTABLE CXR DONE. DR DURAN HERE TO REPOSITION THE MLC. PT DENIES ANY PAIN,NAUSEA OR SHORTNESS OF BREATH. TERRY CATHETER PATENT CLAUDE URINE. SEE ALL APPROPRIATE INTERVENTIONS.
--- NOTE | 2018-06-05 21:34 | NUR ---
CXR AFTER MLC REPOSITIONED OBTAINED. DR DURAN GAVE OKAY TO USE THE LINE.
--- NOTE | 2018-06-05 23:14 | NUR ---
NEOSYNEPHRINE HAS BEEN TITRATED BY 50% TO 25MCG/MIN. PT POSITIONED FOR COMFORT.
--- NOTE | 2018-06-05 23:31 | NUR ---
PT SLEEPING SOUNDLY. MEAN ARTERIAL PRESSURE DROPPED LESS THAN 60. NEOSYNEPHRINE TITRATED UP TO 50MCG/MIN THEN TITRATED AGAIN TO 100MCG/MIN TO GET A MAP >65. SEE BP'S.
[2018-06-06] VITALS (79 sets, daily range): BP systolic 79–191; BP diastolic 32–75
[2018-06-06 04:50] LABS: BASO % 0.3 % (0.0-1.0); EOS # 0.4 10*3/uL (0.0-0.4); EOS % 3.5 % (1.0-4.0); HEMATOCRIT 34.8 % (37.0-47.0); HEMOGLOBIN 10.8 g/dl (12.0-16.0); LYMPH # 2.4 10*3/uL (1.3-4.4); LYMPH % 20.7 % (27.0-41.0); MEAN CELL VOLUME 96.4 fl (81.0-99.0); MEAN CORPUSCULAR HGB 29.9 pg (27.0-31.0); MEAN PLATELET VOLUME 10.1 fl (9.6-12.3); MONO % 8.8 % (3.0-9.0); NEUT # 7.8 10*3/uL (2.3-7.9); NEUT % 66.4 % (47.0-73.0); PLATELET COUNT AUTOMATED 336 10*3/uL (130-400); RED BLOOD COUNT 3.61 10*6/uL (4.10-5.10); RED CELL DISTRI WIDTH 14.2 % (0-14.5); WHITE BLOOD COUNT 11.8 10*3/uL (4.8-10.8)
--- NOTE | 2018-06-06 05:01 | NUR ---
PT WAS OUT OF BED TO [facility] ONLY. DENIED ANY DIZZINESS. WHILE SHE WAS OUT OF BED, BED LINENS CHANGED AND BATHED AT THE BEDSIDE. THERE IS A BRUISED AREA LEFT FLANK "FROM SHOTS LAST WEEK". BACK TO BED, SCD'S ON. PT STATES "I FEEL LIKE A NEW WOMAN".
--- NOTE | 2018-06-06 05:04 | NUR ---
LABS DRAWN FROM [facility] AFTER TURNING FLUIDS OFF AND WASTING 10ML OF BLOOD. BP DID BRIEFLY DROP VIA ART LINE TO 70'S UNTIL FLUIDS RESUMED AND IT RECOVERED QUICKLY.
[2018-06-06 05:20] LABS: ALBUMIN 2.2 gm/dl (3.1-4.5); CREATININE 1.46 mg/dL (0.55-1.02); PHOSPHOROUS 3.9 mg/dL (2.5-4.9); POTASSIUM 3.3 mmol/L (3.5-5.1)
--- NOTE | 2018-06-06 08:23 | NUR ---
PHYSICAL THERAPY Nursing screen received. PT orders also received. Thank you. Edna Blanco,PT
--- NOTE | 2018-06-06 09:00 | NUR ---
Pumper Head in to see patient. No new needs or request at this time. Discharge plan undecided but she is willing to go to SNF if needed.
--- NOTE | 2018-06-06 12:34 | NUR ---
IV TO SABRINA & LEFT WRIST REMOVED - NOT NEEDED RIJ-MLC SECURE & PATENT
--- NOTE | 2018-06-06 13:21 | NUR ---
DR HARLEY WAS IN EARLIER AND SPOKE WITH ICU RESIDENT TEAM ABOUT PATIENT, EXAMINED PAITNET AND RECOMMENDATIONS MADE. URINE OUTPUT DISCUSSED.
--- NOTE | 2018-06-06 14:19 | NUR ---
Patient not appropriated for Occupational Therapy at this time as she is unstable with her BP. OTR will attempt at a later date. Ju Gutierrez OTR/Marcos
--- NOTE | 2018-06-06 14:30 | NUR ---
PHYSICAL THERAPY Nursing requests no PT this date. Patient too ill. Will check patients status tomorrow. Thank you for this referral. Edna Blanco,PT
[2018-06-07] VITALS: BP 129/41
[2018-06-07 04:00] VITALS: BP 146/42
[2018-06-07 06:02] LABS: BASO % 0.1 % (0.0-1.0); EOS # 0.2 10*3/uL (0.0-0.4); HEMATOCRIT 30.2 % (37.0-47.0); HEMOGLOBIN 9.6 g/dl (12.0-16.0); LYMPH # 1.6 10*3/uL (1.3-4.4); LYMPH % 19.7 % (27.0-41.0); MEAN CELL VOLUME 97.1 fl (81.0-99.0); MEAN CORPUSCULAR HGB 30.9 pg (27.0-31.0); MEAN CORPUSCULAR HGB CONC 31.8 g/dl (33.0-37.0); MEAN PLATELET VOLUME 9.9 fl (9.6-12.3); MONO # 0.7 10*3/uL (0.1-1.0); MONO % 8.6 % (3.0-9.0); NEUT # 5.6 10*3/uL (2.3-7.9); NEUT % 69.4 % (47.0-73.0); PLATELET COUNT AUTOMATED 240 10*3/uL (130-400); RED BLOOD COUNT 3.11 10*6/uL (4.10-5.10); RED CELL DISTRI WIDTH 13.8 % (0-14.5); WHITE BLOOD COUNT 8.1 10*3/uL (4.8-10.8)
[2018-06-07 06:28] LABS: ALBUMIN 1.9 gm/dl (3.1-4.5); ALKALINE PHOSPHATASE 42 U/L (45-117); BUN 12 mg/dl (7-24); CHLORIDE 105 mmol/L (98-107); CREATININE 0.81 mg/dL (0.55-1.02); PHOSPHOROUS 2.9 mg/dL (2.5-4.9); POTASSIUM 3.6 mmol/L (3.5-5.1); SGOT/AST 18 IU/L (3-35); SGPT/ALT 18 U/L (12-78); SODIUM 140 mmol/L (136-145); TOTAL PROTEIN 5.2 gm/dL (6.4-8.2)
--- NOTE | 2018-06-07 07:45 | NUR ---
RESTING IN BED. DENIES ANY PAIN. BP 157/49. PULSE OX 97% ON ROOM AIR. LUNGS CLEAR BILATERALLY. NO EDEMA NOTED. SCD'S INTACT TO BILATERAL LOWER LEGS. NS INFUSING AT 125CC/HR VIA RSC MLC. TERRY DRAINING CLEAR YELLOW WITH SEDIMENT.
[2018-06-07 08:00] VITALS: BP 157/49
--- NOTE | 2018-06-07 09:00 | NUR ---
PHYSICAL THERAPY PAtient evaluated in ICCU, full evaluation to follow. Continue with PT as per plan of care with fall, cardiac and acute debility precautions. MAy require SNF, refusing thus far. If home, recommend home health RN, PT and aides. Patient is moderate complexity via chart review, tests and evaluation: [id number], Thank you for this referral. Edna Blanco,PT
--- NOTE | 2018-06-07 09:40 | NUR ---
Occupational Therapy evaluation completed in ICCU with full eval to follow. Precautions include fall risk, obesity , ICCU precautions, cochran, IV UE, acute debility. Recommend OT per POC and SNF to enable safe return home alone. Patient is moderate complexity level 91710 via chart review, testing and evaluation. Thank you for this referral. Ju Gutierrez OTR/l
[2018-06-07 12:00] VITALS: BP 157/50
--- NOTE | 2018-06-07 12:10 | NUR ---
Rectangular Tank Cooper in to see patient. Discussed PT working with her this morning and suggesting a short term SNF. She refuses. Discussed home health care services and she is agreeable. When given a list of agencies she chose [facility]. When medically stable she will be discharged to home with [facility] services of RN/PT.
[2018-06-07 16:00] VITALS: BP 137/65
[2018-06-07 20:00] VITALS: BP 129/72
[2018-06-08] VITALS: BP 129/63
[2018-06-08 04:00] VITALS: BP 160/60
[2018-06-08 05:59] LABS: ALBUMIN 1.8 gm/dl (3.1-4.5); ALKALINE PHOSPHATASE 49 U/L (45-117); BUN 9 mg/dl (7-24); CHLORIDE 103 mmol/L (98-107); CREATININE 0.86 mg/dL (0.55-1.02); PHOSPHOROUS 2.9 mg/dL (2.5-4.9); POTASSIUM 3.6 mmol/L (3.5-5.1); SGOT/AST 13 IU/L (3-35); SGPT/ALT 18 U/L (12-78); SODIUM 139 mmol/L (136-145); TOTAL PROTEIN 5.5 gm/dL (6.4-8.2)
[2018-06-08 06:01] LABS: BASO % 0.1 % (0.0-1.0); EOS # 0.2 10*3/uL (0.0-0.4); EOS % 2.8 % (1.0-4.0); HEMATOCRIT 30.2 % (37.0-47.0); HEMOGLOBIN 9.5 g/dl (12.0-16.0); LYMPH # 1.9 10*3/uL (1.3-4.4); LYMPH % 23.1 % (27.0-41.0); MEAN CELL VOLUME 96.5 fl (81.0-99.0); MEAN CORPUSCULAR HGB 30.4 pg (27.0-31.0); MEAN CORPUSCULAR HGB CONC 31.5 g/dl (33.0-37.0); MEAN PLATELET VOLUME 10.3 fl (9.6-12.3); MONO # 0.7 10*3/uL (0.1-1.0); MONO % 7.9 % (3.0-9.0); NEUT # 5.4 10*3/uL (2.3-7.9); NEUT % 65.7 % (47.0-73.0); PLATELET COUNT AUTOMATED 253 10*3/uL (130-400); RED BLOOD COUNT 3.13 10*6/uL (4.10-5.10); RED CELL DISTRI WIDTH 13.4 % (0-14.5); WHITE BLOOD COUNT 8.2 10*3/uL (4.8-10.8)
[2018-06-08 08:00] VITALS: BP 147/55
--- NOTE | 2018-06-08 09:00 | NUR ---
Pearl Glue Drier in to see patient. Discussed short term rehab and she refuses. She remains agreeable to home health services on discharge. When medically stable she will be discharged to home with [facility] services of RN/PT.
--- NOTE | 2018-06-08 10:13 | NUR ---
OT NOTE Pt was seen this A.M. 1:1 for 23 minute OT session. Upon arrival pt was sitting upright in recliner, pt identified by name and and had no complaints at this time. At rest pt's heart rate was 84 bpm. Pt completed sit to stand transfer from chair level with Mariya due to low surface followed by functional mobility into the bathroom with CGA MOLD CARRIER. There she stood sink side while washing her hands and face with CGA. Pt was able to tolerate aprox 2 minutes of static standing at a time before sitting due to fatigue. Educated pt on energy conservation techniques during ADL's. Pt then returned to recliner where she took a seated rest break. Challenged pt's static standing tolerance for increased I in self care tasks and functional transfers and pt was able to tolerate aprox 2-3 minutes at a time before sitting due to fatigue. Pt's heart rate throughout activity raised to 100 bpm. Pt was left sitting upright in recliner with call light in hand, tray table in place, and ICCU nurse notified. Continue with POC as able. NGUYEN Michelle/Marcos
--- NOTE | 2018-06-08 10:18 | NUR ---
Faxed [facility] referral
--- NOTE | 2018-06-08 10:42 | NUR ---
PHYSICAL THERAPY Patient presented to therapy in sitting position with heart monitor connected, no spO2, and O2 pulse OX NOT connected to patient. Patient just finished eating breakfast. Patient agrees to therapy session. Patient was identified by name and . Patient is connected to IV LINE infusing and catheter bag. Patient performed STS transfer with MIN A X 1 with verbal cues for pushing off chair armrests. Patient ambulated with CYBER SECURITY SYSTEMS ENGINEER X 2 for 48' x 1 with CGA X 1 with verbal cues for upright posture and portable telemtry monitor atttached. Patient transferred back to sitting in bedside chair with CGA X 1 with verbal cues for putting hands back on armrests of chair. Patient was left in sitting position in bedside chair with call light within reach and tray table within reach of patient. Patient also connected to heart monitor. Patient was 1:1 with this TRAFFIC CLERK for 16 minutes. PRISCILLA RILEY TRAFFIC CLERK
[2018-06-08 12:00] VITALS: BP 141/57
--- NOTE | 2018-06-08 13:15 | NUR ---
OT NOTE Pt was seen this P.M. for second OT session consisting of 15 minutes. Upon arrival pt was sitting upright in recliner, pt identified by name and . Pt had no complaints at this time. Pt completed functional mobility around the room CGA NURSING ASSISTANTS TEACHER for increased I in self care tasks and functional transfers. Pt had one LOB that occured when turning that required Mariya to correct. Educated pt on safe turning technique for enhanced safety. Pt then completed multiple sit to stand transfers from chair level followed by challenging static standing tolerance. Pt was able to tolerate aprox 30 seconds, 54 seconds, and 65 seconds before sitting due to fatigue. Pt was left sitting upright in recliner with call light in hand, tray table in place, and phone in reach. Continue with POC as able. NGUYEN Michelle/Marcos
--- NOTE | 2018-06-08 13:48 | NUR ---
PHYSICAL THERAPY Patient presented to therapy in sitting position with no spO2, Cardiac telemetry, and cather still attached. Patient says she is feeling better and wants to walk. Patient agrees to therapy session. Patient was identified by name and . Patient performed STS transfer with SBA. Patient ambulated 80' x 1 with no assistive device and CGA X 1 with verbal cues for upright posture and safe turns. Patient stopped ambulating at 40' and had a brief LOB ,which she corrected herself. Patient transferred back to sitting position in bed side chair with CGA X 1 with verbal cues for putting her hands back on armrests. Patient was left in sitting position in bedside chair with Telemetry connected to main monitor, call light within reach, and tray table in front of patient. Patient was 1:1 with this SHEET ROCK NAILER for 15 minutes total. PRISCILLA RILEY SHEET ROCK NAILER
[2018-06-08 16:00] VITALS: BP 124/59
[2018-06-08 17:13] LABS: ALBUMIN 2.1 gm/dl (3.1-4.5); ALKALINE PHOSPHATASE 53 U/L (45-117); BUN 10 mg/dl (7-24); CHLORIDE 101 mmol/L (98-107); CREATININE 0.86 mg/dL (0.55-1.02); PHOSPHOROUS 2.3 mg/dL (2.5-4.9); POTASSIUM 3.7 mmol/L (3.5-5.1); SGOT/AST 17 IU/L (3-35); SGPT/ALT 22 U/L (12-78); SODIUM 137 mmol/L (136-145); TOTAL PROTEIN 6.1 gm/dL (6.4-8.2)
--- NOTE | 2018-06-08 17:45 | NUR ---
INSULIN HELD PER REQUEST OF DR. AGEE. AFTER INTERPRETATION OF EKG, INSULIN GIVEN PER HIS REQUEST.
[2018-06-08 20:00] VITALS: BP 154/50
[2018-06-09] VITALS: BP 124/52
--- NOTE | 2018-06-09 02:59 | NUR ---
PATIENT SLEEPING. NO S/S OF DISTRESS NOTED. RESPIRATIONS EASY/REG ON RA. CALL LIGHT IN REACH
--- NOTE | 2018-06-09 07:00 | NUR ---
PATIENT AWAKE AND ALERT LAYING IN BED. DENIES ANY CHEST PAIN OR SHORTNESS OF BREATH AT THIS TIME. PATIENT DENIES ANY PAIN AT THIS TIME AND DOES NOT EXPRESS ANY CONCERNS AT THIS TIME. CALL SALEH WITHIN REACH. WILL MONITOR.
--- NOTE | 2018-06-09 08:00 | NUR ---
PT ASSISTED TO CHAIR. ORDERED BREAKFAST. NO OTHER CONCERNS AT THIS TIME. WILL CONTINUE TO MONITOR. KELLY.EBEN HILARIO
--- NOTE | 2018-06-09 08:00 | NUR ---
Set O Type Operator in to see patient. Discussed short term rehab and she refuses. She remains agreeable to home health services on discharge. When medically stable she will be discharged to home with OV services of RN/PT.
[2018-06-09 08:03] VITALS: BP 152/66; BP 153/66
[2018-06-09 08:11] LABS: BASO % 0.2 % (0.0-1.0); EOS # 0.3 10*3/uL (0.0-0.4); EOS % 4.2 % (1.0-4.0); HEMATOCRIT 32.3 % (37.0-47.0); HEMOGLOBIN 10.1 g/dl (12.0-16.0); LYMPH # 1.8 10*3/uL (1.3-4.4); LYMPH % 22.4 % (27.0-41.0); MEAN CELL VOLUME 94.7 fl (81.0-99.0); MEAN CORPUSCULAR HGB 29.6 pg (27.0-31.0); MEAN CORPUSCULAR HGB CONC 31.3 g/dl (33.0-37.0); MEAN PLATELET VOLUME 9.7 fl (9.6-12.3); MONO # 0.5 10*3/uL (0.1-1.0); MONO % 6.5 % (3.0-9.0); NEUT # 5.4 10*3/uL (2.3-7.9); NEUT % 66.5 % (47.0-73.0); PLATELET COUNT AUTOMATED 290 10*3/uL (130-400); RED BLOOD COUNT 3.41 10*6/uL (4.10-5.10); RED CELL DISTRI WIDTH 13.4 % (0-14.5); WHITE BLOOD COUNT 8.1 10*3/uL (4.8-10.8)
[2018-06-09 08:20] LABS: ALKALINE PHOSPHATASE 55 U/L (45-117); BUN 8 mg/dl (7-24); CHLORIDE 104 mmol/L (98-107); CREATININE 0.85 mg/dL (0.55-1.02); POTASSIUM 4.1 mmol/L (3.5-5.1); SGOT/AST 16 IU/L (3-35); SGPT/ALT 20 U/L (12-78); SODIUM 140 mmol/L (136-145); TOTAL PROTEIN 6.2 gm/dL (6.4-8.2)
--- NOTE | 2018-06-09 10:00 | NUR ---
PATIENT UP AND RESTING IN CHAIR WORKING ON CROSSWORD PUZZLES. PT HAS NO CONCERNS AT THIS TIME. KELLY.EBEN HILARIO
--- NOTE | 2018-06-09 10:16 | NUR ---
PHYSICAL THERAPY Patient presented to therapy in sitting position with report of feeling better overall and no complaints. Patient agrees to therapy session. Patient was indentified by name and . Patient perofrmed STS transfer with SBA. Patient performed gait with no assistive device and CONTACT ACID PLANT OPERATOR X 1 for 60' x 1 with no LOB. Patient transferred back to sitting position with SBA. Patient performed STS transfer after a short rest with SBA. Patient performed ambulation with CONTACT ACID PLANT OPERATOR X 1 with no assistive device for 40' x 1. Patient transferred back to sitting in bedside chair with SBA. Patient was left in sitting position with call light witin reach and tray table in front of patient. Patient was 1:1 with this ELECTRIFICATION ADVISER for 20 minutes total. PRISCILLA RILEY ELECTRIFICATION ADVISER
--- NOTE | 2018-06-09 10:18 | NUR ---
OT NOTE Pt was seen this A.M. 1:1 for 20 minute OT session. Upon arrival pt was sitting upright in recliner, pt identified by name and and had no complaints at this time. Pt completed multiple sit to stand transfers from chair level with Mariya due to low surface. Challenged pt's static standing tolerance needed for increased I in self care tasks and functional transfers and pt was able to tolerate aprox 47 seconds, 52 seconds, and 60 seconds before sitting due to fatigue. Pt required a seated rest break between trials. Functional mobility then completed to the bathroom with Mariya WORTHINGTON where she transferred on/off standard commode with CGA for safety and use of grab bar. Clothing management completed with CGA. Pt then completed functional mobility back to the recliner with Mariya WORTHINGTON where she was left with call light in hand, tray table in place, and phone in reach. Continue with POC as able. NGUYEN Michelle/Marcos
--- NOTE | 2018-06-09 10:40 | NUR ---
REMOVED CATH PER DOCTOR SWATI. PATIENT TOLERATED REMOVAL WELL. NO C/O PAIN OR DISCOMFORT. WILL CONTINUE TO MONITOR I&O. KELLY.EBEN HILARIO
[2018-06-09 12:00] VITALS: BP 109/44
--- NOTE | 2018-06-09 12:00 | NUR ---
PT UP AND RESTING IN CHAIR, PROVIDED ASSISTANCE TO RESTROOM, PT VOID AND MOVED CONNIE. NO C/0 DYSURIA. WILL CONTINUE TO MONITOR. KELLY.EBEN HILARIO
--- NOTE | 2018-06-09 13:31 | NUR ---
PHYSICAL THERAPY Patient presented to therapy in sitting position with report of feeling better. Patient agrees to therapy session. Patient was identified by name and . Patient transferred STS with SBA. Patient performed ambulation 100' x 1 with no assistive device and QA TEST ANALYST X 1 and patient also using the railing on the side of the hallway for support when needed. Patient transferred back to sitting position in bed with SBA and verbal cues for putting hands back on armrests of chair. Patient sat in bedside chair and performed seated bilateral LE ther ex 2 x 10 reps each in all planes of movement for strengthening in order to improve patient's functional mobility. Patient was left in sitting postion with call light within reach and tray table in front of patient. Patient was 1:1 with this ADDICTION TREATMENT COUNSELOR for 21 minutes total. PRISCILLA RILEY ADDICTION TREATMENT COUNSELOR
--- NOTE | 2018-06-09 13:31 | NUR ---
OT NOTE Pt was seen this P.M. 1:1 for second OT session consisting of 13 minutes. Upon arrival pt was sitting upright in recliner. Pt identified by name and and had no complaints at this time. Pt completed sit to stand transfer from chair level with modA for inital rise due to low surface. Challenged pt's dynamic standing tolerance needed for increased I in self care tasks and functional transfers and pt was able to tolerate aprox 2 minutes before sitting due to fatigue. Functional mobility completed from recliner to bathroom and back for increased I in ADL's, pt was able to complete with Mariya WORTHINGTON. Educated pt on importance of taking a standing rest break when feeling fatigued due to pt being impulsive and "rushing" to get back increasing risk of falls. Pt had fair carry over throughout. Pt was left sitting upright in recliner with call light in hand, tray table in place, and phone in reach. Continue with POC as able. NGUYEN Michelle/Marcos
--- NOTE | 2018-06-09 15:26 | NUR ---
Shift chart check completed.
[2018-06-09 16:00] VITALS: BP 118/52
[2018-06-09 20:00] VITALS: BP 128/49
[2018-06-09 21:15] VITALS: BP 114/48
[2018-06-10] VITALS: BP 119/51
[2018-06-10 05:57] LABS: BASO % 0.3 % (0.0-1.0); EOS # 0.3 10*3/uL (0.0-0.4); EOS % 4.6 % (1.0-4.0); HEMATOCRIT 28.8 % (37.0-47.0); HEMOGLOBIN 8.8 g/dl (12.0-16.0); LYMPH # 2.1 10*3/uL (1.3-4.4); LYMPH % 27.8 % (27.0-41.0); MEAN CORPUSCULAR HGB 29.3 pg (27.0-31.0); MEAN CORPUSCULAR HGB CONC 30.6 g/dl (33.0-37.0); MEAN PLATELET VOLUME 9.9 fl (9.6-12.3); MONO # 0.6 10*3/uL (0.1-1.0); MONO % 8.1 % (3.0-9.0); NEUT # 4.4 10*3/uL (2.3-7.9); NEUT % 58.9 % (47.0-73.0); PLATELET COUNT AUTOMATED 261 10*3/uL (130-400); RED CELL DISTRI WIDTH 13.5 % (0-14.5); WHITE BLOOD COUNT 7.4 10*3/uL (4.8-10.8)
[2018-06-10 06:26] LABS: CHLORIDE 102 mmol/L (98-107); POTASSIUM 3.9 mmol/L (3.5-5.1); SODIUM 139 mmol/L (136-145)
[2018-06-10 06:36] LABS: ALBUMIN 1.8 gm/dl (3.1-4.5); ALKALINE PHOSPHATASE 45 U/L (45-117); BUN 12 mg/dl (7-24); CREATININE 0.85 mg/dL (0.55-1.02); SGOT/AST 13 IU/L (3-35); SGPT/ALT 19 U/L (12-78); TOTAL PROTEIN 5.6 gm/dL (6.4-8.2)
[2018-06-10 08:00] VITALS: BP 118/50
--- NOTE | 2018-06-10 08:16 | NUR ---
24 HR chart check completed.
--- NOTE | 2018-06-10 09:00 | NUR ---
SITTING IN BEDSIDE CHAIR, NO DISTRESS NOTED. RESPIRATIONS EASY. LUNGS DIMINISHED, CLEAR. PULSE OX 97% RA. ABRASION NOTED TO BRIDGE OF NOSE. +1 BLE EDEMA, TUBI-LIVING MANAGER IN PLACE. CALL LIGHT WITHIN REACH. NO VOICED COMPLAINTS
[2018-06-10 12:00] VITALS: BP 107/50
--- NOTE | 2018-06-10 12:00 | NUR ---
SITTING IN RECLINER. NO DISTRESS NOTED. CALL LIGHT WITHIN REACH
--- NOTE | 2018-06-10 14:00 | NUR ---
DR STEPHENS HERE TO SEE PATIENT AND DISCUSS PLAN OF CARE
--- NOTE | 2018-06-10 14:20 | NUR ---
DR ULLOA HERE TO SEE PATIENT AND DISCUSS PLAN OF CARE
[2018-06-10 16:00] VITALS: BP 125/47
--- NOTE | 2018-06-10 16:45 | NUR ---
REMAINS IN RECLINER DOING CROSSWORD PUZZLE. RESPIRATIONS EASY. CALL LIGHT WITHIN REACH. NO VOICED COMPLAINTS
[2018-06-10 20:00] VITALS: BP 144/51
[2018-06-11] VITALS: BP 119/53
--- NOTE | 2018-06-11 07:48 | NUR ---
24 HR chart check completed.
[2018-06-11 08:00] VITALS: BP 112/52
--- NOTE | 2018-06-11 08:50 | NUR ---
DR OWUSU HERE TO ASSESS PATIENT AND DISCUSS PLAN OF CARE
--- NOTE | 2018-06-11 09:00 | NUR ---
SITTING IN RECLINER WORKING CROSSWORD PUZZLE. NO DISTRESS NOTED. RESPIRATIONS EASY. LUNGS DIMINISHED, CLEAR. PULSE OX 93% RA. HEALING ABRASION NOTED TO NOSE, PATIENT DENIES PAIN. +1 BLE EDEMA NOTED WITH TUBI-REMOTE MEDICAL CODER IN PLACE. CALL LIGHT WITHIN REACH. NO VOICED COMPLAINTS
--- NOTE | 2018-06-11 10:30 | NUR ---
DR WOODALL HERE TO SEE PATIENT AND DISCUSS PLAN OF CARE. STRESS TEST 06/12 @ [id number]
[2018-06-11 12:00] VITALS: BP 121/56
[2018-06-11 16:00] VITALS: BP 130/52
--- NOTE | 2018-06-11 16:00 | NUR ---
REMAINS IN RECLINER WORKING WORD SEARCH PUZZLE. RESPIRATIONS EASY. CALL LIGHT WITHIN REACH. NO VOICED COMPLAINTS
[2018-06-11 20:00] VITALS: BP 133/54
--- NOTE | 2018-06-11 20:00 | NUR ---
SLEEPING IN BED, AWAKENS EASILY. NO DISTRESS NOTED. RESPIRATIONS EASY. NPO STATUS AFTER MIDNIGHT DISCUSS FOR STRESS TEST IN AM, VOICED UNDERSTANDING. CALL LIGHT WITHIN REACH. NO VOICED COMPLAINTS
[2018-06-12] VITALS: BP 125/53
[2018-06-12 06:13] LABS: BASO % 0.2 % (0.0-1.0); EOS # 0.3 10*3/uL (0.0-0.4); EOS % 3.7 % (1.0-4.0); HEMATOCRIT 28.8 % (37.0-47.0); HEMOGLOBIN 9.2 g/dl (12.0-16.0); LYMPH # 2.2 10*3/uL (1.3-4.4); LYMPH % 23.6 % (27.0-41.0); MEAN CELL VOLUME 95.7 fl (81.0-99.0); MEAN CORPUSCULAR HGB 30.6 pg (27.0-31.0); MEAN CORPUSCULAR HGB CONC 31.9 g/dl (33.0-37.0); MEAN PLATELET VOLUME 9.7 fl (9.6-12.3); MONO # 0.8 10*3/uL (0.1-1.0); MONO % 8.3 % (3.0-9.0); NEUT # 5.9 10*3/uL (2.3-7.9); NEUT % 63.8 % (47.0-73.0); NUCLEATED RED BLOOD CELL 0.2 % (0.0-0.0); PLATELET COUNT AUTOMATED 301 10*3/uL (130-400); RED BLOOD COUNT 3.01 10*6/uL (4.10-5.10); RED CELL DISTRI WIDTH 13.6 % (0-14.5); WHITE BLOOD COUNT 9.3 10*3/uL (4.8-10.8)
[2018-06-12 06:50] LABS: ALBUMIN 1.9 gm/dl (3.1-4.5); ALKALINE PHOSPHATASE 53 U/L (45-117); BUN 19 mg/dl (7-24); CHLORIDE 98 mmol/L (98-107); CREATININE 0.98 mg/dL (0.55-1.02); POTASSIUM 3.7 mmol/L (3.5-5.1); SGOT/AST 15 IU/L (3-35); SGPT/ALT 20 U/L (12-78); SODIUM 138 mmol/L (136-145); TOTAL PROTEIN 6.1 gm/dL (6.4-8.2)
--- NOTE | 2018-06-12 07:45 | NUR ---
PATIENT IS NPO DUE TO STRESS TEST. NO COMPLAINTS AT THIS TIME GAVE CALL SALEH AND PUT BED IN LOWEST POSITION. LIA MASTERSON
[2018-06-12 07:51] VITALS: BP 120/58
--- NOTE | 2018-06-12 08:16 | NUR ---
PHYSICAL THERAPY Patient presented to therapy in supine wit hhead of bed elevated and no bed alarm on. Patient reports that she is going home after being discharged from hospital. Patient has no complaints or concerns. Patient agrees to therapy session. Patient was identified by name and . Patient performed supine to sitting at EOB transfer with SBA. Patient transferred STS with with SBA. Patient ambulated 100' x 1 with no assistive device and Close Supervision with no LOB, SOB, or other difficulty. Patient required verbal cues for pushing off bed with hands transferring STS and V/Cs for upright posture with gait. Patient try steps next visit. Patient then sat on EOB and performed seated bilateral LE ther ex 2 x 10 reps each in all planes of movement for strengthening the LEs in order to improve patient's functional mobility. Patient transferred back to supine in bed with SBA. Patient was left in supine with head of bed elevated, call light within reach and tray table near patient. Patient has been ambulating to and from restroom in room ,on her own throughout the day. Patient was 1:1 with this WRECKING SUPERVISOR for 23 minutes total. PRISCILLA RILEY WRECKING SUPERVISOR
--- NOTE | 2018-06-12 08:30 | NUR ---
PT RESTING IN BED, PT DENIES ANY COMPLAINTS. PT REMAINS NPO. CALL LIGHT WITHIN REACH,
--- NOTE | 2018-06-12 08:53 | NUR ---
OT NOTE Pt was seen this A.M. 1:1 for 23 minute OT session. Upon arrival pt was supine in bed, pt identified by name and and had no complaints at this time. Pt transferred supine to sit EOB with SBA. Pt completed multiple sit to stand transfers from bed level with SBA followed by challenging her static standing tolerance needed for increased I in self care tasks and functional transfers. Pt was able to tolerate aprox 1 minute, 2 minutes, and then 45 seconds before sitting due to fatigue. Pt completed functional mobility into the bathroom with CGA for safety. There she transferred on/off standard commode with SBA and use of grab bar for UE support, which pt reports having grab bar at home. Pt then stood sink side while washing her hands, face, and completing hair care with SBA. Throughout pt required seated rest break after aprox 1 minute due to increased fatigue and decreased activity tolerance. Educated pt on energy conservation/work simplification for ADL's. Pt completed functional mobility back to the EOB where she transferred sit to supine with SBA where she was left with call light in hand, tray table in place, and bed alarm activated for safety. Continue with POC as able. NGUYEN Michelle/Marcos
--- NOTE | 2018-06-12 10:21 | NUR ---
PATIENT HAS NO COMPLAINTS AT THIS TIME SHE IS STILL AWAITING STRESS TEST. SHE WAS GIVIN A SHOWER ON MIDNIGHT SHIFT AND DOES NOT WANT BED CHANGE RIGHT NOW. PIERCEDREWAristeo HAS HER CALL NIGHT AND BED IS IN LOWEST POSITION. LIA MARIA SPCLARICECC
--- NOTE | 2018-06-12 11:25 | NUR ---
TO CARDIAC REHAB FOR STRESS TEST LIA OVIEDO SPNRCC
[2018-06-12 12:00] VITALS: BP 120/58
--- NOTE | 2018-06-12 12:07 | NUR ---
OT NOTE Attempted to see pt this P.M. for second OT session and upon arrival pt was out of room for medical test. Will check back at a later time/date. NGUYEN Michelle/Marcos
--- NOTE | 2018-06-12 12:35 | NUR ---
INFORMED SIGNED CONSENT OBTAINED FOR LEXISCAN STRESS TEST WITH DR WOODALL. RESTING EKG NSR HR 73 BP 128/58. PT COMPLETED ONE MINUTE OF A LEXISCAN PROTOCOL WITH PT RECIEVING LEXISCAN 0.4MG IV OVER 10 SECONDS. NO ARRHYTHMIAS OR ST CHANGES NOTED. LAST RECOVERY HR OF 86 BP 130/66. PT IN STABLE CONDITION, AWAITING NUCLEAR IMAGES.
--- NOTE | 2018-06-12 12:57 | NUR ---
PATIENT WENT TO HAVE STRESS TEST AROUND 11:15. STILL HAS NOT RETURNED TO FLOOR. LIA MARIA
--- NOTE | 2018-06-12 13:06 | NUR ---
PHYSICAL THERAPY Patient is having stress test at the moment. Will check back later this PM. leticia tvoar community development manager
--- NOTE | 2018-06-12 13:46 | NUR ---
PHYSICAL THERAPY Patient is still not back from stress test yet. Will check back later. PRISCILLA RILEY STATION CLEANING PORTER
[2018-06-12 13:51] VITALS: BP 148/62
--- NOTE | 2018-06-12 13:52 | NUR ---
RETURNED FROM CARDIAC REHAB, CONDITION STABLE LIA MARIA SPCLARICECC
--- NOTE | 2018-06-12 14:04 | NUR ---
ALL PORTS FLUSHED AND PATIENT TO [facility]
--- NOTE | 2018-06-12 14:08 | NUR ---
OT NOTE Second attempt made to see pt this P.M. for OT session and upon arrival pt was sitting upright in recliner. Pt was requesting to rest at this time due to just returning from stress test and being fatigued. Will check back at a later date. NGUYEN Michelle/Marcos
--- NOTE | 2018-06-12 15:24 | NUR ---
MULTILUMEN CATHETER IN RIGHT IJ REMOVED, TIP INTACT. PRESSURE DRESSING APPLIED. PT TOLERATED WELL.
--- NOTE | 2018-06-12 15:35 | NUR ---
Discharge instructions reviewed with patient/family. Patient receptive and verbalizes understanding. Follow-up care arranged. Written instructions given to patient/family. Pt [facility] to [facility] via wheelchair accompanied by staff. REJI CUMMINGS
--- NOTE | 2018-06-12 15:51 | NUR ---
PHYSICAL THERAPY CO-SIGN I approve of the Phyical Therapy notes written above. TOSHA WILKINS PT
--- NOTE | 2018-06-12 16:11 | NUR ---
OCCUPATIONAL THERAPY CO-SIGN I approve of the Occupational Therapy notes written above. GIL YOO OTR/Marcos
[2018-06-12] MEDS ORDERED: MAGNESIUM OXID400 MG PO (19:16)
[2018-06-13] MEDS ORDERED: Magnesium Oxid400 MG PO (18:36)
== END 2018-06-12 15:35 | disposition home health service (06) | DRG 682 ==
LOC: ED 01:25 → ICCU 02:16 → EDHOLD 02:16 → 4E 02:16 → ICCU 09:50 → 4E 06-08 13:59
PROVIDERS: Internal Medicine; Student in an Organized Health Care Education/Training Program; ADMIT Internal Medicine
PROC: 4A133J1 Monitoring of Arterial Pulse, Peripheral, Percutaneous Approach (ICD-10-PCS; principal; 2018-06-05)
PROC: B548ZZA Ultrasonography of Superior Vena Cava, Guidance (ICD-10-PCS; principal; 2018-06-05)
PROC: 4A133B1 Monitoring of Arterial Pressure, Peripheral, Percutaneous Approach (ICD-10-PCS; principal; 2018-06-05)
PROC: 02HV33Z Insertion of Infusion Device into Superior Vena Cava, Percutaneous Approach (ICD-10-PCS; principal; 2018-06-05)
PROC: 03HY32Z Insertion of Monitoring Device into Upper Artery, Percutaneous Approach (ICD-10-PCS; principal; 2018-06-05)
PROC: 3E073KZ Introduction of Other Diagnostic Substance into Coronary Artery, Percutaneous Approach (ICD-10-PCS; 2018-06-12)
PROC: 4A02XM4 Measurement of Cardiac Total Activity, External Approach (ICD-10-PCS; 2018-06-12)
DX: N17.0 Acute kidney failure with tubular necrosis (principal); E43 Unspecified severe protein-calorie malnutrition; R57.1 Hypovolemic shock; I50.42 Chronic combined systolic (congestive) and diastolic (congestive) heart failure; I47.2 Ventricular tachycardia; B37.49 Other urogenital candidiasis; Z68.42 Body mass index [BMI] 45.0-49.9, adult; I95.2 Hypotension due to drugs; I11.0 Hypertensive heart disease with heart failure; R26.2 Difficulty in walking, not elsewhere classified; G90.9 Disorder of the autonomic nervous system, unspecified; E78.2 Mixed hyperlipidemia; E11.65 Type 2 diabetes mellitus with hyperglycemia; E11.319 Type 2 diabetes mellitus with unspecified diabetic retinopathy without macular edema; E11.649 Type 2 diabetes mellitus with hypoglycemia without coma; K21.0 Gastro-esophageal reflux disease with esophagitis; E66.01 Morbid (severe) obesity due to excess calories; E87.6 Hypokalemia; I25.10 Atherosclerotic heart disease of native coronary artery without angina pectoris; Z96.1 Presence of intraocular lens; D72.825 Bandemia; R94.31 Abnormal electrocardiogram [ECG] [EKG]; N28.1 Cyst of kidney, acquired; T50.2X5A Adverse effect of carbonic-anhydrase inhibitors, benzothiadiazides and other diuretics, initial encounter; Y92.89 Other specified places as the place of occurrence of the external cause; Z79.4 Long term (current) use of insulin; Z88.0 Allergy status to penicillin; Z88.1 Allergy status to other antibiotic agents; Z87.11 Personal history of peptic ulcer disease; Z90.710 Acquired absence of both cervix and uterus; Z87.440 Personal history of urinary (tract) infections; Z98.49 Cataract extraction status, unspecified eye; Z95.1 Presence of aortocoronary bypass graft; Z87.891 Personal history of nicotine dependence; Z82.49 Family history of ischemic heart disease and other diseases of the circulatory system; Z83.3 Family history of diabetes mellitus; Z82.5 Family history of asthma and other chronic lower respiratory diseases; Z79.899 Other long term (current) drug therapy; Z79.02 Long term (current) use of antithrombotics/antiplatelets

== ENCOUNTER 2018-06-13 12:40 | Inpatient (IN) | payer OTHER ==
[~2018-06-13] VITALS: Ht 170.1 cm; Wt 130.7 kg
[2018-06-13 12:40] VITALS: BP 137/52
[~2018-06-13 12:40] MED LIST changes: +MAGNESIUM OXID400 MG PO
[2018-06-13 13:26] LABS: BASO % 0.3 % (0.0-1.0); EOS % 0.1 % (1.0-4.0); HEMATOCRIT 32.3 % (37.0-47.0); LYMPH # 0.8 10*3/uL (1.3-4.4); LYMPH % 8.3 % (27.0-41.0); MEAN CELL VOLUME 95.3 fl (81.0-99.0); MEAN CORPUSCULAR HGB 29.5 pg (27.0-31.0); MEAN PLATELET VOLUME 9.8 fl (9.6-12.3); MONO # 0.5 10*3/uL (0.1-1.0); MONO % 4.7 % (3.0-9.0); NEUT # 8.5 10*3/uL (2.3-7.9); NEUT % 86.2 % (47.0-73.0); NUCLEATED RED BLOOD CELL 0.2 % (0.0-0.0); PLATELET COUNT AUTOMATED 365 10*3/uL (130-400); RED BLOOD COUNT 3.39 10*6/uL (4.10-5.10); RED CELL DISTRI WIDTH 13.5 % (0-14.5); WHITE BLOOD COUNT 9.9 10*3/uL (4.8-10.8)
[2018-06-13 13:40] LABS: ALBUMIN 2.3 gm/dl (3.1-4.5); CREATININE 1.42 mg/dL (0.55-1.02); PHOSPHOROUS 4.1 mg/dL (2.5-4.9); POTASSIUM 4.6 mmol/L (3.5-5.1)
[2018-06-13 14:23] VITALS: BP 115/44
[2018-06-13 14:54] VITALS: BP 136/57
[2018-06-13 14:57] LABS: ACT PARTIAL THROMBO TIME 25.9 SECONDS (20.8-31.5)
--- NOTE | 2018-06-13 15:00 | NUR ---
A 68, admitted to 5E, under the services of SANJANA Perez MD with a diagnosis of ARF, DM WITH HYPERGLYCEMIA. Chief complaint is WEAKNESS, UNABLE TO AMBULATE. Patient arrived via stretcher from ER. Monitor applied. Initial assessment completed. Vital signs taken and recorded. SANJANA PEREZ MD notified of admission to the unit. Orders received. See assessment for past medical history, medications and allergies. Patient and/or family oriented to unit. [facility] 5E visitation policy reviewed. Clothing/patient valuable form completed. REJI COYLE
[2018-06-13] MEDS ORDERED: Magnesium Oxid400 MG PO (18:36)
[2018-06-13 20:00] VITALS: BP 118/46
[2018-06-14] VITALS: BP 108/48
--- NOTE | 2018-06-14 03:28 | NUR ---
24HR CHART CHECK COMPLETED.
--- NOTE | 2018-06-14 05:24 | NUR ---
PT REQUESTING ONLY LANTUS AT THIS TIME. REQUESTING TO WAIT FOR SHORT ACTING INSULIN UNTIL SHE EATS. SEE MAR. CALL LIGHT IN REACH. BED ALARM ON.
[2018-06-14 06:25] LABS: BASO % 0.3 % (0.0-1.0); EOS # 0.1 10*3/uL (0.0-0.4); EOS % 1.9 % (1.0-4.0); HEMATOCRIT 27.8 % (37.0-47.0); HEMOGLOBIN 8.4 g/dl (12.0-16.0); LYMPH # 1.3 10*3/uL (1.3-4.4); LYMPH % 17.7 % (27.0-41.0); MEAN CELL VOLUME 97.2 fl (81.0-99.0); MEAN CORPUSCULAR HGB 29.4 pg (27.0-31.0); MEAN CORPUSCULAR HGB CONC 30.2 g/dl (33.0-37.0); MEAN PLATELET VOLUME 9.9 fl (9.6-12.3); MONO # 0.4 10*3/uL (0.1-1.0); NEUT # 5.4 10*3/uL (2.3-7.9); NEUT % 73.8 % (47.0-73.0); PLATELET COUNT AUTOMATED 318 10*3/uL (130-400); RED BLOOD COUNT 2.86 10*6/uL (4.10-5.10); RED CELL DISTRI WIDTH 13.8 % (0-14.5); WHITE BLOOD COUNT 7.4 10*3/uL (4.8-10.8)
--- NOTE | 2018-06-14 06:35 | NUR ---
PHYSICAL THERAPY Nursing screen received. PT orders also received. Thank you. Edna Blanco,PT
[2018-06-14 06:57] LABS: ALBUMIN 1.9 gm/dl (3.1-4.5); BUN 26 mg/dl (7-24); CHLORIDE 103 mmol/L (98-107); CREATININE 1.08 mg/dL (0.55-1.02); IRON 21 ug/dL (50-170); PHOSPHOROUS 4.1 mg/dL (2.5-4.9); SGOT/AST 22 IU/L (3-35); SGPT/ALT 21 U/L (12-78); SODIUM 140 mmol/L (136-145); TOTAL IRON BINDING CAPACITY 213 ug/dl (250-450); TOTAL PROTEIN 5.9 gm/dL (6.4-8.2)
[2018-06-14 06:58] LABS: ALKALINE PHOSPHATASE 55 U/L (45-117)
--- NOTE | 2018-06-14 07:46 | NUR ---
Nursing screen received and chart review completed. Recommend Occupational Therapy evaluation for discharge planning. Thank you. Ju Gutierrez OTR/l
[2018-06-14 08:00] VITALS: BP 120/50
--- NOTE | 2018-06-14 08:17 | NUR ---
PT RESTING IN BED. NO DISTRESS NOTED. 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
--- NOTE | 2018-06-14 08:48 | NUR ---
PHYSICAL THERAPY PAtient eating breakfast at this time. Edna Blanco,PT
--- NOTE | 2018-06-14 08:51 | NUR ---
Patient eating breakfast. Ju Gutierrez OTR/L
--- NOTE | 2018-06-14 09:00 | NUR ---
[employer] Specialist in to talk to patient. Patient states lives at home alone with her sister checking in on her. There are 18 steps in the home. Physician: Dr. Billy Doan [facility]acy: [facility] Home health services: none Patient's level of ADLs: MINIMAL ASSIST Patient has working utilities: yes DME: cane prn Follow-up physician's appointment after d/c: she prefers to make her own follow up appt after discharge Does patient want to access PORTAL?: no Discharge plan discussed with patient. She lives at home alone with her sister checking in on her. She is minimal assistance in her ADLs and uses a cane for ambulation. Discussed short term SNF and she is agreeable. She chose [facility] but due to her insurance she has agreed to [place] in [place] as she has been there previously. data recovery planner following. ORALIA ROYAL
--- NOTE | 2018-06-14 10:00 | NUR ---
PHYSICAL THERAPY PAtient evaluated on 5, full evaluation to follow. Continue with PT as per plan of care with fall, alarms and mod (A) precautions. Will require SNF. SNF was recommended last admitt, patient refused, was home less than 24 hours and returned due to weakness, unable to ambulate or care for self. PAtient is high complexity via chart review, tests and evaluation: 40376. Thank you for this referral. Edna Blanco,PT
--- NOTE | 2018-06-14 10:22 | NUR ---
Occupational Therapy evaluation completed on 5 with full eval to follow. Precautions include fall risk;bed/personal alarm,new ww use,impaired balance and safety, moderate complexity level 22882 via chart review, testing and evalaution. Recommend OT per POC and SNF to enable return home alone at independent level. Thank you for this referral. Ju Gutierrez OTR/L
--- NOTE | 2018-06-14 11:16 | NUR ---
Patient requested a referral to the [facility]. Contacted facility and faxed referral. Will require precert.
[2018-06-14 12:00] VITALS: BP 125/49
[2018-06-14 16:00] VITALS: BP 115/42
--- NOTE | 2018-06-14 19:16 | NUR ---
SLEEPING NO ACUTE DISTRESS.
[2018-06-14 20:00] VITALS: BP 130/50
[2018-06-15] VITALS: BP 103/41
[2018-06-15 05:13] LABS: BILIRUBIN NEGATIVE (NEGATIVE); BLOOD 2+ (NEGATIVE); CLARITY CLOUDY (CLEAR); COLOR YELLOW (YELLOW); GLUCOSE TRACE (NEGATIVE); KETONE NEGATIVE (NEGATIVE); LEUKO ESTERASE 1+ (NEGATIVE); NITRITE NEGATIVE (NEGATIVE); SPECIFIC GRAVITY >= 1.030 (1.005-1.030); UROBILINOGEN 0.2 E.U./dl (0.2-1.0)
[2018-06-15 05:22] LABS: BACTERIA 4+; EPITHELIAL CELLS TNTC
[2018-06-15 05:27] LABS: YEAST 2+
[2018-06-15 06:56] LABS: BASO % 0.1 % (0.0-1.0); EOS # 0.2 10*3/uL (0.0-0.4); EOS % 2.4 % (1.0-4.0); HEMATOCRIT 26.7 % (37.0-47.0); HEMOGLOBIN 8.3 g/dl (12.0-16.0); LYMPH # 1.3 10*3/uL (1.3-4.4); LYMPH % 19.8 % (27.0-41.0); MEAN CELL VOLUME 97.1 fl (81.0-99.0); MEAN CORPUSCULAR HGB 30.2 pg (27.0-31.0); MEAN CORPUSCULAR HGB CONC 31.1 g/dl (33.0-37.0); MEAN PLATELET VOLUME 9.4 fl (9.6-12.3); MONO # 0.6 10*3/uL (0.1-1.0); MONO % 8.2 % (3.0-9.0); NEUT # 4.6 10*3/uL (2.3-7.9); NEUT % 69.1 % (47.0-73.0); PLATELET COUNT AUTOMATED 286 10*3/uL (130-400); RED BLOOD COUNT 2.75 10*6/uL (4.10-5.10); WHITE BLOOD COUNT 6.7 10*3/uL (4.8-10.8)
[2018-06-15 07:22] LABS: ALBUMIN 1.8 gm/dl (3.1-4.5); BUN 21 mg/dl (7-24); CHLORIDE 103 mmol/L (98-107); CREATININE 1.07 mg/dL (0.55-1.02); POTASSIUM 3.8 mmol/L (3.5-5.1); SGOT/AST 25 IU/L (3-35); SGPT/ALT 21 U/L (12-78); SODIUM 140 mmol/L (136-145)
[2018-06-15 07:24] LABS: ALKALINE PHOSPHATASE 56 U/L (45-117); TOTAL PROTEIN 5.9 gm/dL (6.4-8.2)
--- NOTE | 2018-06-15 07:30 | NUR ---
OT NOTE Pt was seen this A.M. 1:1 for 15 minute OT session. Upon arrival pt was supine in bed, pt identified by name and and had no complaints at this time. Pt transferred supine to sit EOB with Mariya for assist with UB. Sit to stand completed from bed level with Mariya and use of w/w for UE support. Functional mobility completed into the bathroom with Mariya and use of w/w. There she transferred on to standard commode with CGA and use of grab bar. Clothing management completed with CGA. Pt then transferred off standard commode with Mariya and use of grab bar due to low surface. Pt stood sink side while washing her hands and face with CGA, pt had LOB backwards when standing without UE support, required Mariya to correct. Therapist noticed that pt began to jeffers throughout activity, pt stated she was rushing due to feeling SOB not fatigued. Educated pt on importance of placing a chair in the bathroom for energy conservation techniques. Pt returned to recliner where her SpO2 was checked, SpO2 was 86% on room air and with visual and verbal instructions for breathing techniques after aprox 1 minute pt's SpO2 raised to 92% on room air . Notified nurse of change in SpO2. Pt was left sitting upright in recliner with call light in hand, tray table in place, and body alarm on for safety. Continue with rec D/C plan to SNF. NABILA Michelle
--- NOTE | 2018-06-15 07:30 | NUR ---
PT RSTING IN BED. NO DISTRESS NOTED. NO VOICED C/O. 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
[2018-06-15 08:00] VITALS: BP 130/48
--- NOTE | 2018-06-15 08:05 | NUR ---
PHYSICAL THERAPY Patient seen this am 1:1 for therapy visit and was supine in bed upon therapist arrival. Patient reports no new c/o's this morning and transfers supine to sit EOB with Min A, tolerating EOB sit x several minutes to collect herself. Patient performed several sit to stand transfers at bedside, Min A, demonstrating slow rise and wide YAMILET. Patient ambulates with use of wh walker, 40'x 1, Min/CGA, demonstrating both decreased stride / heel strike. Patient also fatigues quickly, requiring standing rest > 25 feet, along with v/c for purse lip breathing technique. Patient returned to bedside chair following gait ex and recorded SpO2 85%, HR 95 bpm. Nurse notified of drop in O2 stats during gait on room air. Patient remained in bedside chair awaiting breakfast with call light, tray table, telephone and body alarm for safety. Will continue per POC as tolerated, total treatment time 14 minutes. Dorian Keen, SPIKEMAKING SUPERVISOR
--- NOTE | 2018-06-15 11:00 | NUR ---
Commodities Clerk in to see patient. Discussed [place] in [place] and remains agreeable. Discussed palliative care and she is agreeable. Notified Dr. Doan and new orders received. When medically stable and auth is received she will be discharged to [place].
--- NOTE | 2018-06-15 11:10 | NUR ---
[facility] has started precert, waiting for auth.
--- NOTE | 2018-06-15 11:58 | NUR ---
Spoke with pt today and she reports appetite is good and she is eating well. Stated she follows diabetic diet at home and checks BGs BID. BG ranging 90-180 mg/dL at home. Provided a diabetic diet copy and encouraged futher nutrition questions to Anisa Lyman RDN,SUSHIL or myself. Margoth Delarosa U Dieteic Student
[2018-06-15 12:00] VITALS: BP 125/40
--- NOTE | 2018-06-15 12:40 | NUR ---
PHYSICAL THERAPY CO-SIGN I approve of the Phyical Therapy notes written above. TOSHA WILKINS PT
--- NOTE | 2018-06-15 12:43 | NUR ---
palliative care consult [facility]
--- NOTE | 2018-06-15 14:01 | NUR ---
Faxed [facility] Order.
[2018-06-15 16:00] VITALS: BP 115/37
--- NOTE | 2018-06-15 17:43 | NUR ---
PT CONTINUES TO SIT UP IN CHAIR. NO DISTRESS NOTED. 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
[2018-06-15 20:00] VITALS: BP 110/54
--- NOTE | 2018-06-15 20:50 | NUR ---
PATIENT STATING 85-86% ON RA. 2L NASAL CANULA PLACED ON PATIENT. NOW STATING 95%. WILL CONTINUE TO MONTIOR.
[2018-06-16] VITALS: BP 117/45
--- NOTE | 2018-06-16 07:28 | NUR ---
Patient has received auth for [place], she can go if medically stable for discharge. Notified lead case manager Charla Marino.
--- NOTE | 2018-06-16 07:31 | NUR ---
VITALS STABLE, A&OX3, NO PAIN STATED AT TIME OF ASSESSMENT, HEART SOUNDS NORMAL, LUNG SOUNDS CLEAR, DIMINISHED THROUGHOUT, BOWELS SOUNDS ACTIVE X4, SOFT, NONTENDER, OBESE, +4 PITTING EDEMA TO LOWER EXTRIMITIES, CAP REFILL <3 SECONDS, POSITIVE PEDAL PULSES. LEONIDES DELACRUZ SPCLARICECC
--- NOTE | 2018-06-16 07:46 | NUR ---
Notified Dr. Chin of [facility] received for [place]. If medically stable she can be discharged today.
--- NOTE | 2018-06-16 07:55 | NUR ---
PHYSICAL THERAPY Patient seen this am 1:1 for therapy visit and was in the bathroom with OT social work assistant upon therapist arrival. Patient voices no new c/o's this morning and was very pleasant. Patient ambulates with use of wh walker, 30'x 1, Min/CGA, demonstrating very slow braxton and "cautious" posture. Patient returned to bedside chair with mild fatigue and then completed several sit to stand transfers, MIN A. Patient remained with call light, tray table and telephone. Will continue per POC as tolerated, total treatment time 13 minutes. Dorian Keen, [facility] [employer]
[2018-06-16 08:00] VITALS: BP 120/44
--- NOTE | 2018-06-16 08:00 | NUR ---
OT NOTE Pt was seen this A.M. 1:1 for 15 minute OT session. Upon arrival pt was sitting upright on commode. Pt identified by name and and had no complaints at this time. Pt presented to therapy with continous 2L-O2 via NC which she reamained on throughout entire session. Pt completed toilet hygiene completed with supervision while seated. Pt transferred off standard commode with modA and use of w/w for UE support. Pt then stood sink side while washing her hands and face with CGA. Pt tolerated static standing tolerance while sink side for aprox 3 minutes before sitting due to fatigue. Pt returned to the recliner with call light in hand, tray table in place, and body alarm on for safety. Continue with rec D/C plan to SNF. NGUYEN Michelle/Marcos
--- NOTE | 2018-06-16 11:55 | NUR ---
VITALS STABLE, SITTING UP IN THE CHAIR, VERY COOPERATIVE, PATIENT HAD A LARGE LOOSE STOOL BM. LEONIDES REARDONCC
[2018-06-16 12:00] VITALS: BP 108/44
--- NOTE | 2018-06-16 15:14 | NUR ---
PHYSICAL THERAPY CO-SIGN I approve of the Phyical Therapy notes written above. TOSHA WILKINS PT
--- NOTE | 2018-06-16 15:22 | NUR ---
OCCUPATIONAL THERAPY CO-SIGN I approve of the Occupational Therapy notes written above. GIL YOO OTR/Marcos
[2018-06-16] MEDS ORDERED: FEOSOL325 MG PO (15:48)
[2018-06-16 16:00] VITALS: BP 120/41
--- NOTE | 2018-06-16 17:30 | NUR ---
ATTEMPED TO CALL [facility] TO GIVE REPORT . NO ANSWER
--- NOTE | 2018-06-16 17:49 | NUR ---
PT RESTING IN BED. NO DISTRESS NOTED. NO VOICED C/O. 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
--- NOTE | 2018-06-16 18:35 | NUR ---
REPORT CALLED TO MEHNAZ
--- NOTE | 2018-06-16 19:51 | NUR ---
PT STATES THAT HER FAMILY IS AWARE OF HER LEAVING FOR [facility]
--- NOTE | 2018-06-16 20:20 | NUR ---
Discharge instructions reviewed with patient/family. Patient receptive and verbalizes understanding. Follow-up care arranged. Written instructions given to patient/family. MARIAA ABEBE
--- NOTE | 2018-06-16 20:20 | NUR ---
Discharge instructions reviewed with patient/family. Patient receptive and verbalizes understanding. Follow-up care arranged. Written instructions given to patient/family. MARIAA ABEBE
== END 2018-06-16 20:20 | disposition other institution (70) | DRG 682 ==
LOC: ED 12:40 → EDHOLD 13:56 → 5E 13:56
PROVIDERS: Emergency Medicine; Family Medicine; Student in an Organized Health Care Education/Training Program; ADMIT Internal Medicine
DX: N17.9 Acute kidney failure, unspecified (principal); E43 Unspecified severe protein-calorie malnutrition; E87.1 Hypo-osmolality and hyponatremia; I50.42 Chronic combined systolic (congestive) and diastolic (congestive) heart failure; I13.0 Hypertensive heart and chronic kidney disease with heart failure and stage 1 through stage 4 chronic kidney disease, or unspecified chronic kidney disease; N39.0 Urinary tract infection, site not specified; Z68.42 Body mass index [BMI] 45.0-49.9, adult; E10.65 Type 1 diabetes mellitus with hyperglycemia; E78.5 Hyperlipidemia, unspecified; E66.01 Morbid (severe) obesity due to excess calories; N18.9 Chronic kidney disease, unspecified; E10.22 Type 1 diabetes mellitus with diabetic chronic kidney disease; K21.9 Gastro-esophageal reflux disease without esophagitis; I25.10 Atherosclerotic heart disease of native coronary artery without angina pectoris; I45.81 Long QT syndrome; E86.0 Dehydration; D64.9 Anemia, unspecified; R62.7 Adult failure to thrive; E83.41 Hypermagnesemia; Z66 Do not resuscitate; Z51.5 Encounter for palliative care; Z95.1 Presence of aortocoronary bypass graft; Z87.891 Personal history of nicotine dependence; Z88.1 Allergy status to other antibiotic agents; Z88.0 Allergy status to penicillin; Z87.440 Personal history of urinary (tract) infections; Z87.11 Personal history of peptic ulcer disease; Z90.710 Acquired absence of both cervix and uterus; Z98.49 Cataract extraction status, unspecified eye; Z82.49 Family history of ischemic heart disease and other diseases of the circulatory system; Z83.3 Family history of diabetes mellitus; Z82.5 Family history of asthma and other chronic lower respiratory diseases; Z79.82 Long term (current) use of aspirin; Z79.899 Other long term (current) drug therapy; Z79.02 Long term (current) use of antithrombotics/antiplatelets